=== PATIENT | female | born 1970 | race Caucasian/White ===

== ENCOUNTER 2016-07-19 17:11 | Inpatient (IN) | payer OTHER ==
[~2016-07-19] VITALS: Ht 157.5 cm; Wt 97.1 kg
--- NOTE | 2016-07-19 18:00 | NUR ---
PT REPORTS SHE IS LIVING IN [place] BUT [place]" PT REPORTING SHE TOOK THE BUS FROM [place] TO [facility] [place] AND THEN "WALKED UP THE HILL HERE"
--- NOTE | 2016-07-19 18:00 | NUR ---
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 PT REPORTS SHE NORMALLY HAS DIFFICULTY AMBULATING DUE TO DROP FOOT BUT NOTICED SIGNIFICANT WEAKNESS SINCE ABOUT 3:[address] TREVINO AWARE, CT SCAN ORDERED.
--- NOTE | 2016-07-19 18:37 | NUR ---
PT TO ROOM 12, AWAITING PROVIDER EVAL
--- NOTE | 2016-07-19 18:39 | CT SCAN REPORT ---
EXAMINATION: CT HEAD WITHOUT CONTRAST CLINICAL INFORMATION: Left arm/left leg weakness. Assess for CVA. COMPARISON: None. TECHNIQUE: Contiguous axial imaging was performed from the skull base to vertex without intravenous administration of contrast. DLP: 600.71 mGy-cm. FINDINGS: There is no evidence of acute intracranial hemorrhage or territorial infarction. No abnormal mass effect or midline shift is seen. Moise to white matter differentiation is well preserved. No extra-axial fluid collections are identified. The ventricles are normal in size. There is no abnormal attenuation within the brain parenchyma. The osseous structures and soft tissues are normal. The mastoid air cells and visualized portions of the paranasal sinuses are well aerated. IMPRESSION: 1. There are no acute intracranial findings.
[2016-07-19 19:12] LABS: ABSOLUTE BASOPHIL COUNT 0.1 /CUMM (0.0-0.2); ABSOLUTE EOSINOPHIL COUNT 0.3 /CUMM (0.0-0.7); ABSOLUTE GRANULOCYTE CT 7.6 /CUMM (1.4-6.5); ABSOLUTE LYMPH COUNT 3.3 /CUMM (1.2-3.4); ABSOLUTE MONOCYTE COUNT 0.8 /CUMM (0.10-0.60); BASOPHIL % 0.5 % (0.0-2.0); EOSINOPHIL % 2.8 % (0-5); GRANULOCYTE % 62.8 % (42.2-75.2); HEMATOCRIT 40.5 % (37-47); MEAN CORPUSCULAR HGB CONC 34.3 G/DL (33.0-37.0); MEAN CORPUSCULAR VOLUME 99.1 FL (81.0-99.0); MEAN PLATELET VOLUME 8.3 FL (7.4-10.4); PLATELET COUNT 261 /CUMM (130-400); RED BLOOD CELL CT 4.09 /CUMM (4.20-5.40); WHITE BLOOD CELL COUNT 12.1 /CUMM (4.8-10.8)
[2016-07-19 19:18] LABS: PT 10.3 SEC (9.4-12.5); PTT 32 SEC (25-37)
--- NOTE | 2016-07-19 19:19 | ED UPPER/LOWER EXTREMITY COMPL ---
History of Present Illness General Chief Complaint: Lower Extremity Problems Stated Complaint: WEAKNESS IN LEFT LEG Source: patient Exam Limitations: no limitations Vital Signs & Intake/Output Vital Signs & Intake/Output Vital Signs Date Time Temp Pulse Resp B/P Pulse O2 O2 Flow FiO2 Ox Delivery Rate 07/19 2217 98.7 82 20 106/72 96 Room Air 07/19 2100 98.4 86 18 109/63 99 Room Air 07/19 1840 Room Air 07/19 1759 97.2 91 18 128/89 100 Room Air ED Intake and Output 07/20 0000 07/19 1200 Intake Total 70 Output Total Balance 70 Intake, IV 10 Intake, Oral 60 Patient 200 lb Weight Allergies Coded Allergies: cephalexin (From KEFLEX) (Severe, ANAPHYLAXIS 07/19/16) ciprofloxacin (Severe, ANAPHYLAXIS 07/19/16) egg (Severe, ANAPHYLAXIS 07/19/16) Penicillins (ANAPHYLAXIS 07/19/16) Reconcile Medications Albuterol Sulfate (Proair Hfa) 90 MCG HFA.AER.AD 2 PUF INH PRN ASTHMA ( Reported) Aspirin (Lo-Dose Aspirin EC) 81 MG TABLET.DR 1 TAB PO DAILY HEART/BLOOD ( Reported) Cyclosporine (Restasis) 0.05 % DROPERETTE 1 GTT OPH BID BOTH EYES (Reported) Divalproex Sodium 250 MG TABLET.DR 750 MG PO BID SEIZURES (Reported) Fluticasone/Salmeterol (Advair 250-50 Diskus) 250 MCG-50 MCG/DOSE BLST.W.DEV 1 PUF INH BID ASTHMA (Reported) Levothyroxine Sodium 50 MCG TABLET 1 TAB PO DAILY AC THYROID (Reported) Meclizine HCl 12.5 MG TABLET 1 TAB PO PRN VERTIGO (Reported) Montelukast Sodium 10 MG TABLET 1 TAB PO DAILY SUPPLEMENT (Reported) Prazosin HCl 1 MG CAPSULE 1 CAP PO QPM PTSD (Reported) Quetiapine Fumarate 25 MG TABLET 1 TAB PO QPM SLEEP (Reported) Tiotropium [place] (Spiriva) 18 MCG CAP.W.DEV 1 CAP INH DAILY ASTHMA ( Reported) Topiramate 25 MG TABLET 1 TAB PO BID SEIZURES (Reported) Triage Note: PT TO ED FOR LEFT LEG WEAKNESS, SLURRED SPEECH AND 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 PT REPORTS SHE NORMALLY HAS DIFFICULTY AMBULATING DUE TO DROP FOOT BUT NOTICED SIGNIFICANT WEAKNESS SINCE ABOUT 3:[address] BELINDA AWARE, CT SCAN ORDERED. Triage Nurses Notes Reviewed? yes Onset: Abrupt Duration: hour(s): Timing: single episode today Severity: severe Pain/Injury Location: Left: Arm, Leg. Method of Injury: unknown No Modifying Factors: none Associated Symptoms: left arm and leg weakness. : No Patient currently breastfeeds: No HPI: 46 yo woman in prior good health presents with left hand and arm weakness. She notes that her symptoms began, "sometime this afternoon." She had been in [place] when the symptoms began. She was taking the bus back home and asked the busboy to drop her off near a hosptial. She then dragged her left foot, using her walker, up the hill. "I almost couldn't do it." She notes slight difficulty speaking. "I am speaking more slowly." She notes not headache or vision changes. She is otherwise well. Past History Travel History Traveled to [place] past 21 day No Medical History Any Pertinent Medical History? see below for history Neurological: SEIZURES EENT: NONE Respiratory: asthma Musculoskeletal: SPINAL STENOSIS FOOT DROP Surgical History Surgical History: non-contributory Psychosocial History What is your primary language Bolivian Tobacco Use: Current Daily Use Daily Tobacco Use Amount/Type: => 5 Cigarettes daily ETOH Use: denies use Illicit Drug Use: denies illicit drug use Family History Hx Contributory? No Review of Systems Review of Systems Constitutional: Reports: no symptoms. EENTM: Reports: no symptoms. Respiratory: Reports: no symptoms. Cardiovascular: Reports: no symptoms. Gastrointestinal/Abdominal: Reports: no symptoms. Genitourinary: Reports: no symptoms. Musculoskeletal: Reports: no symptoms. Skin: Reports: no symptoms. Neurological/Psychological: Reports: no symptoms. Hematologic/Endocrine: Reports: no symptoms. Immunological: Reports: no symptoms. All Other Systems: Reviewed and Negative Physical Exam Physical Exam General Appearance: well developed/nourished, mild distress Head: atraumatic Eyes: Bilateral: PERRL, EOMI. Ears, Nose, Throat: normal pharynx, normal ENT inspection, hearing grossly normal Neck: normal inspection, supple Cardiovascular/Respiratory: regular rate/rhythm Gastrointestinal: soft, nontender, non distended Back: normal inspection Skin: intact, normal color, warm/dry Lymphatic: no anterior cervical jacquie Comments: left arm/ left leg with 1/5 strength. Right arm/leg with 5/5 strength. DTR's on left 0/5, right arm/leg 2/5. Light touch intact. Speech slow. No facial droop. Progress Differential Diagnosis: cva vs tia vs other. Plan of Care: Orders Procedure Date/time Status Nothing by Mouth 07/20 B Active CBC WITHOUT DIFFERENTIAL 07/20 06 Active BASIC ELECTROLYTES PLUS BUN&CR 07/20 06 Active Nothing by Mouth 07/19 B Complete URINE DRUGS OF ABUSE 07/19 222 Active Teach/Educate 07/19 2214 Active Nutritional Intake, Monitor 07/19 2214 Active Isolation 07/19 2214 Active Patient Care Conference 07/19 2214 Active Activity/Ambulation 07/19 2214 Active Pathway - chart 07/19 2201 Active House Staff 07/19 2201 Active Patient Data 07/19 2201 Active URINALYSIS 07/19 2156 Active NIH Stroke Scale 07/19 2129 Active Intake & Output 07/19 2112 Active Patient Data 07/19 2035 Active EKG 07/19 2006 Active Add-on Test (ER Only) 07/19 2003 Active Saline Lock 07/19 193 Active Misc Message 07/19 193 Active ED Holding Orders 07/19 193 Active Admit to inpatient 07/19 1936 Active Vital Signs 07/19 193 Active Code Status 07/19 193 Active THYROID STIMULATING HORMONE 07/19 1847 Complete DEPAKOTE LEVEL 07/19 1847 Complete PARTIAL THROMBOPLASTIN TIME 07/19 1757 Complete PROTHROMBIN TIME 07/19 1757 Complete COMPREHENSIVE METABOLIC PANEL 07/19 1757 Complete CBC WITHOUT DIFFERENTIAL 07/19 175 Complete [id number] DOPPLER 07/19 UNK Active SWALLOW EVALUATION 07/19 UNK Active PT Evaluate & Treat 07/19 UNK Active Occupational Tx Eval & Treat 07/19 UNK Active VTE Mechanical Prophylaxis 07/19 UNK Active Telemetry/Negative Turner 07/19 UNK Active MRI-HEAD W & W/O QUINN 07/19 UNK Active ECHOCARDIOGRAM 07/19 UNK Active Current Medications Sig/Jose Guadalupe Start time Last Medication Dose Stop Time Status Admin Quetiapine Fumarate 25 MG QPM 07/20 2200 AC (Seroquel) Aspirin Buffered 81 MG DAILY 07/20 1000 AC (Ecotrin) Enoxaparin Sodium 40 MG DAILY 07/20 1000 AC (Lovenox) Montelukast Sodium 10 MG DAILY 07/20 1000 AC (Singulair) Levothyroxine Sodium 0.05 MG DAILY AC 07/20 0700 AC (Synthroid) Laboratory Tests 07/19/16 1847: Anion Gap 10, Estimated GFR > 60, BUN/Creatinine Ratio 13.3, Glucose 99, Calcium 9.2, Total Bilirubin 0.4, AST 15, ALT 27, Alkaline Phosphatase 106, Total Protein 7.0, Albumin 3.7, Globulin 3.3, Albumin/Globulin Ratio 1.1, TSH 8.840 H , PT 10.3, INR 0.98, APTT 32, CBC w Diff NO MAN DIFF REQ, RBC 4.09 L, MCV 99.1 H, MCH 34.0 H, RDW 13.0, MPV 8.3, Gran % 62.8, Lymphocytes % 27.3, Monocytes % 6.6, Eosinophils % 2.8, Basophils % 0.5, Absolute Granulocytes 7.6 H, Absolute Lymphocytes 3.3, Absolute Monocytes 0.8 H, Absolute Eosinophils 0.3, Absolute Basophils 0.1, PUBS MCHC 34.3, Valproic Acid 24.3 L Diagnostic Imaging: Viewed by Me: Radiology Read, CT Scan. Discussed w/RAD: Radiology Read, CT Scan. Radiology Impression: head ct... benign. CXR Impression: no acute abnormality, no infiltrates, normal size heart, normal mediastinum Initial ED EKG: normal axis, normal intervals, normal p-waves, normal QRS complex, normal sinus rhythm Departure Departure Disposition: STILL A PATIENT Condition: Stable Clinical Impression Primary Impression: CVA (cerebral vascular accident) Referrals: PATIENT HAS NO PRIMARY CARE DR (PCP/Family) Departure Forms: Customer Survey General Discharge Information Comments pt passed swallow evaluation. Stroke score of 7. Head ct neg... aspirin given. Not a candidate for tpa due to uncertain duration of symptoms, with high likelihood of more than 4.5 hours. Admission Note Spoke With: PRESTON CLARKE MD Documentation of Exam: Documentation of any treatments & extenuating circumstances including Concerns Regarding Discharge (functional status, medication knowledge or non-compliance, living conditions, etc.) that warrant an admission rather than observation: pt with 1/5 strength in left arm and leg consistent with cva. Unknown start time and thus not a candidate for thrombolytics. Pt to be admitted for further evaluation and placement. Aspirin given. Pt passed swallow evaluation.
--- NOTE | 2016-07-19 19:28 | NUR ---
DR BENOIT AT BEDSIDE TO KITTY PT. PT WITH SLOW SPEACH, NO FACIAL DROOP. PT STATES SHE WAS ON THE BUS WHEN SHE NOTICED THAT HER LEFT ARM "WAS NOT WORKING SO WELL" IS UNSURE OF WHAT TIME IT STARTED. WALKED UP [place]ILL FROM [employer] DRIVE AREA TO ED WITH HER WALKER. 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 HAS HISTORY OF FOOT DROP ON LEFT SIDE
--- NOTE | 2016-07-19 19:41 | NUR ---
PORT CXR BEING DONE
--- NOTE | 2016-07-19 19:45 | NUR ---
MEDICATED WITH 325 MG ASA PO ORDERED. NO DIFFICULTY DRINKING WATER OR SWALLOWING PILL
--- NOTE | 2016-07-19 20:00 | RADIOLOGY REPORT ---
EXAMINATION: XR PORTABLE CHEST CLINICAL INFORMATION: CVA. COMPARISON: None. TECHNIQUE: Portable view of the chest was obtained. 7:39 PM FINDINGS: No significant abnormality is noted involving the heart, lungs, mediastinum, bony thorax or soft tissues. IMPRESSION: Normal chest.
[2016-07-19] MEDS ORDERED: PRAZOSIN HCL1 M1 PO (20:10)
[2016-07-19] MEDS ORDERED: MECLIZINE HCL12.5 M1 PO (20:11)
[2016-07-19] MEDS ORDERED: DIVALPROEX SOD250 M2 PO (20:11)
[2016-07-19] MEDS ORDERED: LO-DOSE ASPIRIN81 MG PO (20:12)
[2016-07-19] MEDS ORDERED: LEVOTHYROXINE50 MCG PO (20:12)
[2016-07-19] MEDS ORDERED: PROAIR HFA8.5 GM INH (20:13)
[2016-07-19] MEDS ORDERED: TOPIRAMATE25 M2 PO (20:14)
[2016-07-19] MEDS ORDERED: RESTASIS1 EACH OPH (20:15)
[2016-07-19] MEDS ORDERED: QUETIAPINE FUMA25 M1 PO (20:15)
[2016-07-19] MEDS ORDERED: ADVAIR 250-501 EACH INH (20:19)
[2016-07-19] MEDS ORDERED: SPIRIVA18 MCG INH (20:19)
[2016-07-19] MEDS ORDERED: MONTELUKAST SOD10 M1 PO (20:20)
--- NOTE | 2016-07-19 20:29 | NUR ---
MULTIPLE ATEMPTS BY MULTIPLE STAFF UNSUCCESSFUL FOR IV ACCESS
--- NOTE | 2016-07-19 20:49 | History & Physical ---
NIRAV KHALIL,[facility] [place] 07/19/162048: General Information and HPI MD Statement: I have seen and personally examined EDDIE BANERJEE and documented this H&P. The patient is a 46 year old F who presented with a patient stated chief complaint of left arm and leg weakness. Source of Information: patient Exam Limitations: no limitations History of Present Illness: Patient is a 46 y/o F with PMHx of hypothyroidism, asthma, seizure disorder, urinary incontinence bilateral foot drop of unknown etiology, PTSD, insomnia and CVA in May 2016 who presents with acute onset left arm and leg weakness which started around 3:30 PM on the day of current presentation. Patient was taking the bus from [place] where she lives to [place] when she noted that her left arm felt weak and she had difficulty grabbing her belongings which had fallen on the floor. She asked the business specialist if there was a nearby hospital and was told to get off at [place]. She had to drag her feet on her way to the hospital but it is unclear whether she had leg weakness as she has foot drop at baseline. She denies loss of consciousness. She endorses headache, blurry vision and "white spots" in front of her eyes. She denies chest pain or recent infections. Patient had a stroke in May 2016 while visiting friends in [place] and was subsequently hospitalized for 6 days. She was supposed to be discharged to a rehab facility but the plan fell through due to her lack of insurance and she ended up coming back to [place]. She denies residual deficit after the stroke. Of note, patient is homeless and lives in a [place] [facility]. Her PCP prescribes her medications but she is not consistent with follow-up. She endorses longstanding urinary incontinence and wears diapers. She has seen a urologist in [place] in the past and work-up has been nonrevealing. Patient no longer sees the urologist as the botox injections which she has prescribed has made the problem worse. Allergies/Medications Allergies: Coded Allergies: cephalexin (From KEFLEX) (Severe, ANAPHYLAXIS 07/19/16) ciprofloxacin (Severe, ANAPHYLAXIS 07/19/16) egg (Severe, ANAPHYLAXIS 07/19/16) Penicillins (ANAPHYLAXIS 07/19/16) Home Med list Albuterol Sulfate (Proair Hfa) 90 MCG HFA.AER.AD 2 PUF INH PRN ASTHMA ( Reported) Aspirin (Lo-Dose Aspirin EC) 81 MG TABLET. 1 TAB PO DAILY HEART/BLOOD ( Reported) Cyclosporine (Restasis) 0.05 % DROPERETTE 1 GTT OPH BID BOTH EYES (Reported) Divalproex Sodium 250 MG TABLET.DR 750 MG PO BID SEIZURES (Reported) Fluticasone/Salmeterol (Advair 250-50 Diskus) 250 MCG-50 MCG/DOSE BLST.W.DEV 1 PUF INH BID ASTHMA (Reported) Levothyroxine Sodium 50 MCG TABLET 1 TAB PO DAILY AC THYROID (Reported) Meclizine HCl 12.5 MG TABLET 1 TAB PO PRN VERTIGO (Reported) Montelukast Sodium 10 MG TABLET 1 TAB PO DAILY SUPPLEMENT (Reported) Prazosin HCl 1 MG CAPSULE 1 CAP PO QPM PTSD (Reported) Quetiapine Fumarate 25 MG TABLET 1 TAB PO QPM SLEEP (Reported) Tiotropium Hominy (Spiriva) 18 MCG CAP.W.DEV 1 CAP INH DAILY ASTHMA ( Reported) Topiramate 25 MG TABLET 1 TAB PO BID SEIZURES (Reported) Past History Travel History Traveled to [place] past 21 day No Medical History Neurological: seizure Respiratory: asthma Musculoskeletal: spinal stenosis, foot drop Psychiatric: insomnia, 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 Other ([facility]) Primary Language: Kosovan Smoking Status: Current Everyday Smoker (1/2 PPD) ETOH Use: denies use Illicit Drug Use: denies illicit drug use Review of Systems Review of Systems Constitutional: Reports: no symptoms. EENTM: Reports: blurred vision, visual changes. Cardiovascular: Denies: chest pain. Respiratory: Denies: short of breath. GI: Reports: no symptoms. Genitourinary: Reports: see HPI. Musculoskeletal: Reports: no symptoms. Skin: Reports: no symptoms. Neurological/Psychological: Reports: headache, unable to move lower ext, unable to move upper ext, weakness. Denies: pre-existing deficit. Hematologic/Endocrine: Reports: no symptoms. Immunologic/Allergic: Reports: no symptoms. All Other Systems: Reviewed and Negative Exam & Diagnostic Data Last 24 Hrs of Vital Signs/I&O Vital Signs Date Time Temp Pulse Resp B/P Pulse O2 O2 Flow FiO2 Ox Delivery Rate 07/19 2216 98.7 82 20 106/72 96 Room Air 07/19 2100 98.4 86 18 109/63 99 Room Air 07/19 1840 Room Air 07/19 1759 97.2 91 18 128/89 100 Room Air Intake & Output 07/20 0800 07/20 0000 07/19 1600 Intake Total 70 Output Total Balance 70 Intake, IV 10 Intake, Oral 60 Patient 90.718 kg Weight Physical Exam General Appearance Alert, Oriented X3, No Acute Distress Skin No Significant Lesion HEENT PERRLA, Mucous Membr. moist/pink Cardiovascular Regular Rate, Normal S1, Normal S2 Lungs Clear to Auscultation Abdomen Soft, No Tenderness, Positive Bowel Sounds Neurological Normal Speech, Sensation Intact, Cranial Nerves 3-12 NL, Strength at 3/5 in Left Upper and Lower Extremity, Strength at 5/5 in Right Upper and Lower Extremity, Unable to Elicit Patellar Reflexes Bilaterally Extremities No Clubbing, No Cyanosis, No Edema Last 24 Hrs of Labs/John: Laboratory Tests 07/19/167: Anion Gap 10, Estimated GFR > 60, BUN/Creatinine Ratio 13.3, Glucose 99, Calcium 9.2, Total Bilirubin 0.4, AST 15, ALT 27, Alkaline Phosphatase 106, Total Protein 7.0, Albumin 3.7, Globulin 3.3, Albumin/Globulin Ratio 1.1, TSH 8.840 H , PT 10.3, INR 0.98, APTT 32, CBC w Diff NO MAN DIFF REQ, RBC 4.09 L, MCV 99.1 H, MCH 34.0 H, RDW 13.0, MPV 8.3, Gran % 62.8, Lymphocytes % 27.3, Monocytes % 6.6, Eosinophils % 2.8, Basophils % 0.5, Absolute Granulocytes 7.6 H, Absolute Lymphocytes 3.3, Absolute Monocytes 0.8 H, Absolute Eosinophils 0.3, Absolute Basophils 0.1, PUBS MCHC 34.3, Valproic Acid 24.3 L Diagnostic Data EKG Results Normal sinus rhythm HR 83 QTc 423 CXR Results Normal chest. Other Results There are no acute intracranial findings. Assessment/Plan Assessment: 46 y/o F with PMHx of CVA in May 2016, seizure disorder and foot drop of unknown etiology who presents with acute onset of leg arm and leg weakness. #Left arm/leg weakness: Left arm/leg weakness would be consistent with R-sided stroke however CT Head with no evidence of acute infarct or hemorrhage. Differential includes TIA as well. Suspicion for malingering is high, given inconsistency of her symptoms (LUE with full strength when assessed while patient was falling asleep and varying levels of strength measured by different examiners) and in the setting of patient's unstable living situation. History of recent stroke in May 2016 with no residual deficits. * Admit to telemetry floor for continuous cardiac monitoring. * Neurology consult in the AM. Appreciate their recs. * Neurochecks Q6H. * MRI Head W & W/O QUINN ordered to evaluate for acute infarct. * ECHO ordered to assess for embolic source. * Carotid doppler US ordered to evaluate for carotid artery stenosis. * Urine toxicology ordered. * Continue prior to admission daily low dose aspirin. * Start atorvastatin 40 mg PO QD. * NPO pending formal swallow eval in the AM. * PT/OT consult. * Check lipid panel and TSH. * Allow for permissive HTN given suspicion of stroke. Keep SBP >150. #Seizure disorder: On Depakote 750 mg PO BID and topiramate 25 mg PO BID. Valproic acid level low at 24.3 (reference range: 50-120). * Continue home medications. * Seizure precautions. #Hypothyroidism: TSH elevated at 8.840 on admission. * Continue prior to admission levothyroxine 0.05 mg PO QD. #Asthma/COPD: Takes Advair, Spiriva and montelukast. No signs of acute exacerbation. * Continue prior to admission montelukast 10 mg PO QD. * Albuterol PRN. #PTSD/insomnia: Takes prazosin 1 mg PO QHS and Seroquel 25 mg PO QHS. * Hold prazosin in light of permissive BP goal. * Continue prior to admission Seroquel. Diet: NPO Pain: Tylenol 650 mg PO Q6H PRN for mild pain (scale 1-3) DVT PPx: Lovenox and ALPs CODE: FULL As Ranked By This Provider Problem List: 1. Left arm weakness 2. Left leg weakness 3. Seizure disorder 4. Asthma 5. Hypothyroidism 6. PTSD (post-traumatic stress disorder) 7. Foot drop 8. Urinary incontinence 9. Insomnia 10. History of CVA (cerebrovascular accident) without residual deficits Core Measures/Miscellaneous Acute Coronary Syndrome ACS Diagnosis: No Cerebrovascular Accident CVA/TIA Diagnosis: Yes NIH Stroke Scale: Total 4 Date Last Known Well: 07/19/16 Time Last Known Well: 1530 (Before sx started at 3:30 PM) Neurological S/S of CVA: Left Hemiparesis, Muscle Weakness, Weakness of Limb Symptom Start Date: 07/19/16 Symptom Start Time: 1529 Reason tPA not ordered Medical Contraindication (Past the Window) Bedside Swallow Eval Done: Yes Result of Evaluation: Pass Antithrombotic: Yes AFIB: No Aflutter: No Anticoagulant: No No Anticoag d/t: Medical Contraindication (No Concern for Embolic Disease) LDL Assessed Within 24 Hours: Yes Currently on Statin: Yes Rehab Needs Assessed: Medical Eval for Rehab (PT/OT Eval Ordered) PT Consult Ordered: Yes Congestive Heart Failure CHF Diagnosis: No Venous Thromboembolism VTE Risk Factors: Acute medical illness, Age > 40, Immobility, paresis, Obesity, Smoking VTE Prophylaxis Ordered Inpt: Mech & Pharm No Mech VTE prophylaxis d/t: No contraindications No VTE Pharm Prophylaxis d/t: No contraindications VTE Diagnosis: No VTE Type: NONE VTE Confirmed by (Test): NONE Severe Sepsis Severe Sepsis Present: No Septic Shock Septic Shock Present: No Miscellaneous Documentation Attending Case Discussed With: PRESTON CLARKE MD Primary Care Physician: PATIENT HAS NO PRIMARY CARE DR Patient sees these Specialists N/A Level of Patient Care: Telemetry ANGELA LEAVITT 07/19/16 2223: Resident Review Statement Resident Statement: examined this patient, discussed with international trade analyst, agreed with international trade analyst Other Findings: Patient is a 46-year-old woman with past medical history significant for asthma, seizure disorder, urinary incontinence and foot drop of unknown etiology presented to the ED with a chief complaints of acute left-sided upper and lower extremity started in the evening at around 4 PM. She reported that her symptoms started while she was on a bus. She noticed acute left-sided upper and lower extremity weakness could not able to grab her stuff. She informed the dolly driver and was dropped to the [facility] for the further assessment. Accordingly the patient she had a stroke in May 2016 when she was visiting a friend/family in [place], hospitalized for 6 days and afterwards she was supposed to be discharged to rehabilitation but due to lack of insurance she couldn't go to rehabilitation and came back to [place]. She did not have any residual weakness after the stroke. She is homeless and lives [place] [facility], does not regularly follow up with the primary care physician. She has urinary incontinence for a long time use diapers. Vitals on admission temperature 97.2, pulse 91, blood pressure 128/89 General Appearance: Alert, No Acute Distress, Skin: Grossly normal HEENT: PEERLA Neck: Supple, No JVD Cardiovascular: Regular Rate, Normal S1, Normal S2, No Murmurs Lungs: Lungs clear to examination bilaterally Abdomen: Normal Bowel Sounds, Soft, positive suprapubic tenderness Neurological: Decreased Left low extremity 2/5, decreased in left lower extremity strength 2/5 Strength at 5/5 in the right upper and lower extremities, decreased reflexes in lower extremities with intact sensations. Extremities: No Clubbing, No Cyanosis, No Edema Vascular: Normal Pulses. Pertinent labs on admission leukocytosis without any bandemia normal BP normal PTT and INR. CT head: There are no acute intracranial findings. Assessments and plan: 1. Acute upper and lower extremity weakness possible TIA versus stroke versus Possible malingering : * We will admit the patient to telemetry floor. * Patient passed bedside swallow evaluation, will keep her nothing by mouth overnight to get formal swallow evaluation in the morning. * Blood pressure continues to remain borderline, hold off any antihypertensive for now, per med permissive hypertension to keep blood pressure more than 150. * Consider antihypertensives if blood pressure remains elevated above 220. * Patient already received high-dose aspirin 325 in the ER we'll continue with aspirin 85 mg daily and Lipitor 40 mg. * Inform neurology in the morning * PT/OT consult in the morning. 2 history of seizures * Continue home dose of Depakote and Seroquel. 3. DVT prophylaxis with subcutaneous Lovenox 4. Mild to moderate pain controlled with Tylenol. 5. Full code. VINCEJEREMIAHYue 07/20/16 0523: Attending MD Review Statement Attending Statement Attending MD Statement: examined this patient, discuss w/resident/PA/MOBILE MANAGER, agreed w/resident/PA/MOBILE MANAGER, reviewed EMR data (avail), reviewed images, amended to note Attending Assessment/Plan: Chief complaint: Left arm weakness, left leg weakness. PMH: Hypothyroidism, seizure, asthma, bilateral foot drop, urinary incontinence, PTSD, insomnia, CVA in May 2016. Patient lives in a [facility] [place] [facility], Patient was taking a bus from [place] to [place], when she noticed things are falling off from left hand, also noticed worsening left lower extremity weakness and left arm weakness, so she asked business specialist to drop to nearest hospital, she came to ER walking. Otherwise 14 point ROS negative. Vitals: Afebrile, HR, RR, blood pressure in normal range, saturating well on room air. On examination: A O 3, slow speech, cranial nerves intact, Patient has subjective 3/5 strength left upper extremity and left lower extremity, CVS: S1-S2, RRR. RS: Clear air entry bilaterally. Abdomen: Soft, NT, ND, bowel sounds present no obvious skin lesions or rashes. Labs: WBC 12.1 CBC, BMP, LFT in normal range. CT head: No acute intracranial finding. CXR: No acute changes. A and P #1 TIA versus stroke: Patient had left-sided subjective weakness, CT head did not show any changes. Obtain MRI brain with and without contrast, telemetry monitoring, carotid Doppler, 2-D echo, lipid profile, TSH, urine toxicology, neurochecks every 6 hours, OT PT evaluation in a.m. Neurologic consult in a.m. Continue 325 mg of aspirin by mouth and 40 mg, atorvastatin by mouth, swallow evaluation in a.m. #2 hypothyroidism: Continue home doses of Synthroid. #3 history of seizures: Continue Depakote and topiramate. Seizure precaution. #4 PTSD/insomnia/depression continue home medications. #5 history of asthma/COPD: Continue when necessary nebulization with albuterol. #6 DVT prophylaxis with Lovenox. Adequate pain control.
--- NOTE | 2016-07-19 20:59 | NUR ---
BED ASSIGNEMNT [id number]
--- NOTE | 2016-07-19 21:10 | NUR ---
IV ACCESS ESTABLISHED KADEN 22G BY ZAFAR Lester
--- NOTE | 2016-07-19 21:13 | NUR ---
HOUSE STAFF AT BEDSIDE TO EVAL PT
--- NOTE | 2016-07-19 21:48 | NUR ---
REPORT GIVEN TO ZAFAR MCLAUGHLIN, TRANSPORT CALLED
[2016-07-19 22:17] VITALS: BP 106/72
--- NOTE | 2016-07-20 05:24 | Admission Certification ---
Admission Certification Certification Statement - As attending physician, I certify that at the time of - admission, based on clinical presentation, severity of - symptoms, need for further diagnostic testing and - therapeutic interventions, and risk of adverse outcomes - without in-hospital treatment, in my clinical assessment, - this patient requires an acute hospital stay for a minimum - of two nights or longer. I have also considered psychsocial - factors such as support system, advanced age, financial - issues, cognitive issues, and failed out-patient treatments, - past re-admission history, safety of patient, and lack of - compliance as applicable. Specific rationale supporting this admission is: TIA versus stroke
--- NOTE | 2016-07-20 07:26 | PN- Housestaff ---
ANGELA LEAVITT 07/20/16 0725: Subjective Follow-up For: Acute upper and lower extremity weakness possible TIA versus stroke versus Possible malingering Subjective: Patient is seen and examined today seems slightly better still reports left upper and lower extremity weakness. Currently nothing by mouth for formal swallowing evaluation in the morning patient will be evaluated by neurology Review of Systems Constitutional: Denies: chills, diaphoresis, fever. EENTM: Denies: blurred vision, double vision, eye pain, eye drainage. Cardiovascular: Denies: chest pain. Respiratory: Denies: cough, orthopnea, short of breath. Genitourinary: Denies: discharge, dysuria, frequency. Objective Last 24 Hrs of Vital Signs/I&O Vital Signs Date Time Temp Pulse Resp B/P Pulse O2 O2 Flow FiO2 Ox Delivery Rate 07/19 2217 98.7 82 20 106/72 96 Room Air 07/19 2100 98.4 86 18 109/63 99 Room Air 07/19 1840 Room Air 07/19 1759 97.2 91 18 128/89 100 Room Air Intake & Output 07/20 0800 07/20 0000 07/19 1600 Intake Total 800 70 Output Total Balance 800 70 Intake, IV 600 10 Intake, Oral 200 60 Patient 200 lb Weight Physical Exam General Appearance: Alert, Oriented X3 Skin: No Rashes, No Breakdown HEENT: Atraumatic, PERRLA Cardiovascular: Regular Rate, Normal S1, Normal S2 Abdomen: Normal Bowel Sounds, Soft Assessment/Plan Assessment: Patient is a 46-year-old woman with past medical history significant for asthma, seizure disorder, urinary incontinence and foot drop of unknown etiology presented to the ED with a chief complaints of acute left-sided upper and lower extremity started in the evening at around 4 PM. She reported that her symptoms started while she was on a bus. She noticed acute left-sided upper and lower extremity weakness could not able to grab her stuff. She informed the car driver and was dropped to the [facility] for the further assessment. Assessments and plan: 1. Acute upper and lower extremity weakness possible TIA versus stroke versus Possible malingering : * We will admit the patient to telemetry floor. * Patient passed bedside swallow evaluation, will keep her nothing by mouth overnight to get formal swallow evaluation in the morning. * Blood pressure continues to remain borderline, hold off any antihypertensive for now, per med permissive hypertension to keep blood pressure more than 150. * Consider antihypertensives if blood pressure remains elevated above 220. * Patient already received high-dose aspirin 325 in the ER we'll continue with aspirin 85 mg daily and Lipitor 40 mg. * Inform neurology in the morning * PT/OT consult in the morning. 2 history of seizures * Continue home dose of Depakote and Seroquel. 3. DVT prophylaxis with subcutaneous Lovenox 4. Mild to moderate pain controlled with Tylenol. 5. Full code. Problem List: 1. Left arm weakness 2. Left leg weakness Pain Ratin Pain Location: When necessary Tylenol Pain Goal: Remain pain free Pain Plan: When necessary Tylenol Tomorrow's Labs & Rationales: No need of labs NAOMI DESHPANDE MD 07/20/16 1205: Attending MD Review Statement Attending Statement Attending MD Statement: examined this patient, discuss w/resident/PA/LABORATORY AIDE, agreed w/resident/PA/LABORATORY AIDE, reviewed EMR data (avail), reviewed images Attending Assessment/Plan: 46-year-old female with past medical history significant for asthma, seizure disorder, urinary incontinence, PTSD, hypothyroidism, previous history of CVA in May 2016, and for drop of unknown etiology is being admitted on the floor with a 1 day history of acute left-sided weakness of the body. She was seen and examined on the bedside this morning and continued to have weakness in both the upper and lower left extremity. CT head did not show any acute infarct or hemorrhage. MRI has been ordered and we would follow the results. Neurology consult is awaited. Please follow-up on neurology recommendations regarding increase in valproic acid given her subtherapeutic valproic acid levels. Swallow eval is also pending. For now we'll continue to monitor and will keep her on aspirin and statins.
[2016-07-20 08:47] VITALS: BP 103/59
[2016-07-20 11:54] LABS: ABSOLUTE BASOPHIL COUNT 0 /CUMM (0.0-0.2); ABSOLUTE EOSINOPHIL COUNT 0.3 /CUMM (0.0-0.7); ABSOLUTE GRANULOCYTE CT 4.4 /CUMM (1.4-6.5); ABSOLUTE LYMPH COUNT 3.3 /CUMM (1.2-3.4); ABSOLUTE MONOCYTE COUNT 0.6 /CUMM (0.10-0.60); BASOPHIL % 0.4 % (0.0-2.0); EOSINOPHIL % 3.9 % (0-5); GRANULOCYTE % 50.9 % (42.2-75.2); HEMATOCRIT 39.1 % (37-47); MEAN CORPUSCULAR HGB 34.3 PG (27.0-31.0); MEAN CORPUSCULAR HGB CONC 34.5 G/DL (33.0-37.0); MEAN CORPUSCULAR VOLUME 99.6 FL (81.0-99.0); MEAN PLATELET VOLUME 8.9 FL (7.4-10.4); PLATELET COUNT 237 /CUMM (130-400); RBC DISTRIBUTION WIDTH 12.9 % (11.5-14.5); RED BLOOD CELL CT 3.93 /CUMM (4.20-5.40); WHITE BLOOD CELL COUNT 8.7 /CUMM (4.8-10.8)
--- NOTE | 2016-07-20 12:17 | NUR ---
Physical therapy: Pt VARUN for MRI. Will follow up with patient tomorrow for PT eval as appropriate. Thank you.
--- NOTE | 2016-07-20 12:26 | ULTRASOUND REPORT ---
EXAMINATION: DUPLEX BILATERAL CAROTID ULTRASOUND CLINICAL INFORMATION: Stroke with left-sided weakness. COMPARISON: None. TECHNIQUE: Real-time ultrasound and Doppler techniques (integrating B-mode 2D vascular images, Doppler spectral analysis and color flow Doppler imaging) were utilized to interrogate the extracranial carotid and vertebral arteries bilaterally. FINDINGS: Right side: 1. There is no significant plaque in the ECA/ICA region. 2. The common carotid artery velocity is 78 cm/s. 3. The proximal internal carotid artery velocities are 94 cm/s systolic and 37 cm/s diastolic. 4. The external carotid artery velocity is 121 cm/s. Left side: 1. There is no significant plaque in the ECA/ICA region. 2. The common carotid artery velocity is 102 cm/s. 3. The proximal internal carotid artery velocities are 94 cm/s systolic and 28 cm/s diastolic. 4. The external carotid artery velocity is 99 cm/s. ADDITIONAL FINDINGS: 1. The vertebral arteries show antegrade flow. 2. The brachial artery pressures are symmetric. IMPRESSION: 1. RIGHT: No significant stenosis of the proximal right internal carotid artery corresponding to a 0-49% stenosis by velocity criteria. 2. LEFT: No significant stenosis of the proximal left internal carotid artery corresponding to a 0-49% stenosis by velocity criteria. 3. Antegrade flow is seen via the bilateral vertebral arteries.
--- NOTE | 2016-07-20 14:22 | Cons- Neurology ---
General Information and HPI Consulting Request Date of Consult: 07/20/16 Requested By: PRESTON CLARKE MD Reason for Consult: left sided weakness History of Present Illness: The patient is a 46 y/o F with PMHx of hypothyroidism, asthma, seizure disorder, urinary incontinence bilateral foot drop of unknown etiology, PTSD, insomnia and CVA in May 2016 who presents with acute onset left arm and leg weakness which started around 3:30 PM on the day of current presentation. Patient was taking the bus from [place] where she lives to [place] when she noted that her left arm felt weak and she had difficulty grabbing her belongings which had fallen on the floor. She asked the busher helper if there was a nearby hospital and was told to get off at [place]. She had to drag her feet on her way to the hospital but it is unclear whether she had leg weakness as she has foot drop at baseline. Patient had a stroke in May 2016 while visiting friends in [place] and was subsequently hospitalized for 6 days. She was supposed to be discharged to a rehab facility but the plan fell through due to her lack of insurance and she ended up coming back to [place]. She denies residual deficit after the stroke. Of note, patient is homeless and lives in a usp. Her PCP prescribes her medications but she is not consistent with follow-up. Allergies/Medications Allergies: Coded Allergies: cephalexin (From KEFLEX) (Severe, ANAPHYLAXIS 07/19/16) ciprofloxacin (Severe, ANAPHYLAXIS 07/19/16) egg (Severe, ANAPHYLAXIS 07/19/16) Penicillins (ANAPHYLAXIS 07/19/16) Home Med List: Albuterol Sulfate (Proair Hfa) 90 MCG HFA.AER.AD 2 PUF INH PRN ASTHMA ( Reported) Aspirin (Lo-Dose Aspirin EC) 81 MG TABLET. 1 TAB PO DAILY HEART/BLOOD ( Reported) Cyclosporine (Restasis) 0.05 % DROPERETTE 1 GTT OPH BID BOTH EYES (Reported) Divalproex Sodium 250 MG TABLET.DR 750 MG PO BID SEIZURES (Reported) Fluticasone/Salmeterol (Advair 250-50 Diskus) 250 MCG-50 MCG/DOSE BLST.W.DEV 1 PUF INH BID ASTHMA (Reported) Levothyroxine Sodium 50 MCG TABLET 1 TAB PO DAILY AC THYROID (Reported) Meclizine HCl 12.5 MG TABLET 1 TAB PO PRN VERTIGO (Reported) Montelukast Sodium 10 MG TABLET 1 TAB PO DAILY SUPPLEMENT (Reported) Prazosin HCl 1 MG CAPSULE 1 CAP PO QPM PTSD (Reported) Quetiapine Fumarate 25 MG TABLET 1 TAB PO QPM SLEEP (Reported) Tiotropium [place] (Spiriva) 18 MCG CAP.W.DEV 1 CAP INH DAILY ASTHMA ( Reported) Topiramate 25 MG TABLET 1 TAB PO BID SEIZURES (Reported) Current Medications: Current Medications Sig/Jose Guadalupe Start time Last Medication Dose Route Stop Time Status Admin Acetaminophen 650 MG Q6P PRN 07/19 2200 AC 07/19 PO 2307 Aspirin 325 MG ONCE ONE 07/19 1944 DC 07/19 PO 07/19 Aspirin 0 .STK-MED ONE 07/19 1939 DC PO Aspirin Buffered 81 MG DAILY 07/20 1000 AC 07/20 PO 1101 Atorvastatin Calcium 40 MG 1700 07/19 2200 AC 07/20 PO 0030 Divalproex Sodium 750 MG BID 07/19 2230 AC 07/20 PO 1101 Enoxaparin Sodium 40 MG DAILY 07/20 1000 AC SC Levothyroxine Sodium 0.05 MG DAILY AC 07/20 0700 AC 07/20 PO 0725 Lorazepam 1 MG ONCE ONE 07/20 1100 DC 07/20 IV 07/20 1101 1102 Montelukast Sodium 10 MG DAILY 07/20 1000 AC 07/20 PO 1101 Quetiapine Fumarate 25 MG QPM 07/20 2200 AC PO Sodium Chloride 1,000 ML Q13H 07/19 2230 AC 07/19 IV 2307 Review of Systems Review of Systems: 10 point ROS was unremarkable except as noted as above Past History Travel History Traveled to [place] past 21 day No Medical History Blood Transfusion Hx: No Neurological: seizure Cardiovascular: NONE Respiratory: asthma Gastrointestinal: NONE Hepatic: NONE Renal: NONE Musculoskeletal: spinal stenosis, foot drop Psychiatric: insomnia, PTSD Endocrine: hyperthyroidism Blood Disorders: NONE Cancer(s): NONE 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 Other (Homeless Snf) Services at Home: None Primary Language: Mongolian Smoking Status: Current Everyday Smoker (1/2 PPD) ETOH Use: denies use Illicit Drug Use: denies illicit drug use Exam & Diagnostic Data Vital Signs and I&O Vital Signs Date Time Temp Pulse Resp B/P Pulse O2 O2 Flow FiO2 Ox Delivery Rate 07/20 0847 98.2 63 16 103/59 97 Room Air 07/19 2217 98.7 82 20 106/72 96 Room Air 07/19 2100 98.4 86 18 109/63 99 Room Air 07/19 1840 Room Air 07/19 1759 97.2 91 18 128/89 100 Room Air Intake & Output 07/20 1600 07/20 0800 07/20 0000 Intake Total 800 70 Output Total Balance 800 70 Intake, IV 600 10 Intake, Oral 200 60 Patient 90.718 kg Weight Physical Exam: Patient not cooperative with exam, would like to be left alone so she can go back to sleeping NAD A&Ox4, able to follow simple and complex commands, no dysarthria Pupils are 3mm britt, no forced gaze deviation, no ptosis, ophthalmoparesis or nystagmus CN 2- 12 intact Motor: normal bulk/tone, no drift, 5/5 t/o Neg christina No clonus Downgoing toes Sensation intact t/o Last 48 Hours of Lab Results: Laboratory Tests 07/20 07/19 1031 2220 Chemistry Sodium (137 - 145 mmol/L) 142 Potassium (3.5 - 5.1 mmol/L) 4.7 Chloride (98 - 107 mmol/L) 110 H Carbon Dioxide (22 - 30 mmol/L) 23 Anion Gap (5 - 16) 10 BUN (7 - 17 mg/dL) 11 Creatinine (0.5 - 1.0 mg/dL) 0.9 Estimated GFR (>60 ml/min) > 60 BUN/Creatinine Ratio (7 - 25 %) 12.2 Triglycerides (<150 mg/dL) 382 H Cholesterol (<200 MG/DL) 190 LDL Cholesterol, Calc (65 - 129 mg/dL) 89 HDL Cholesterol (40 - 60 mg/dL) 25 L Cholesterol/HDL Ratio (0.00 - 4.23 %) 7 H Hematology CBC w Diff NO MAN DIFF REQ WBC (4.8 - 10.8 /CUMM) 8.7 RBC (4.20 - 5.40 /CUMM) 3.93 L Hgb (12.0 - 16.0 G/DL) 13.5 Hct (37 - 47 %) 39.1 MCV (81.0 - 99.0 FL) 99.6 H MCH (27.0 - 31.0 PG) 34.3 H RDW (11.5 - 14.5 %) 12.9 Plt Count (130 - 400 /CUMM) 237 MPV (7.4 - 10.4 FL) 8.9 Gran % (42.2 - 75.2 %) 50.9 Lymphocytes % (20.5 - 51.1 %) 38.0 Monocytes % (1.7 - 9.3 %) 6.8 Eosinophils % (0 - 5 %) 3.9 Basophils % (0.0 - 2.0 %) 0.4 Absolute Granulocytes (1.4 - 6.5 /CUMM) 4.4 Absolute Lymphocytes (1.2 - 3.4 /CUMM) 3.3 Absolute Monocytes (0.10 - 0.60 /CUMM) 0.6 Absolute Eosinophils (0.0 - 0.7 /CUMM) 0.3 Absolute Basophils (0.0 - 0.2 /CUMM) 0 PUBS MCHC (33.0 - 37.0 G/DL) 34.5 Toxicology Methadone Screen Cancelled Barbiturate Screen Cancelled Ur Phencyclidine Scrn Cancelled Amphetamines Screen Cancelled U Benzodiazepines Scrn Cancelled Urine Cocaine Screen Cancelled Urine Cannabis Screen Cancelled 07/19 1847 Chemistry Sodium (137 - 145 mmol/L) 140 Potassium (3.5 - 5.1 mmol/L) 4.4 Chloride (98 - 107 mmol/L) 105 Carbon Dioxide (22 - 30 mmol/L) 24 Anion Gap (5 - 16) 10 BUN (7 - 17 mg/dL) 12 Creatinine (0.5 - 1.0 mg/dL) 0.9 Estimated GFR (>60 ml/min) > 60 BUN/Creatinine Ratio (7 - 25 %) 13.3 Glucose (65 - 99 mg/dL) 99 Calcium (8.4 - 10.2 mg/dL) 9.2 Total Bilirubin (0.2 - 1.3 mg/dL) 0.4 AST (14 - 36 U/L) 15 ALT (9 - 52 U/L) 27 Alkaline Phosphatase (<127 U/L) 106 Total Protein (6.3 - 8.2 g/dL) 7.0 Albumin (3.5 - 5.0 g/dL) 3.7 Globulin (1.9 - 4.2 gm/dL) 3.3 Albumin/Globulin Ratio (1.1 - 2.2 %) 1.1 TSH (0.270 - 4.200 uIU/mL) 8.840 H Coagulation PT (9.4 - 12.5 SEC) 10.3 INR (0.90 - 1.19) 0.98 APTT (25 - 37 SEC) 32 Hematology CBC w Diff NO MAN DIFF REQ WBC (4.8 - 10.8 /CUMM) 12.1 H RBC (4.20 - 5.40 /CUMM) 4.09 L Hgb (12.0 - 16.0 G/DL) 13.9 Hct (37 - 47 %) 40.5 MCV (81.0 - 99.0 FL) 99.1 H MCH (27.0 - 31.0 PG) 34.0 H RDW (11.5 - 14.5 %) 13.0 Plt Count (130 - 400 /CUMM) 261 MPV (7.4 - 10.4 FL) 8.3 Gran % (42.2 - 75.2 %) 62.8 Lymphocytes % (20.5 - 51.1 %) 27.3 Monocytes % (1.7 - 9.3 %) 6.6 Eosinophils % (0 - 5 %) 2.8 Basophils % (0.0 - 2.0 %) 0.5 Absolute Granulocytes (1.4 - 6.5 /CUMM) 7.6 H Absolute Lymphocytes (1.2 - 3.4 /CUMM) 3.3 Absolute Monocytes (0.10 - 0.60 /CUMM) 0.8 H Absolute Eosinophils (0.0 - 0.7 /CUMM) 0.3 Absolute Basophils (0.0 - 0.2 /CUMM) 0.1 PUBS MCHC (33.0 - 37.0 G/DL) 34.3 Toxicology Valproic Acid (50 - 120 ug/mL) 24.3 L Imaging/Other Studies: CT head: There are no acute intracranial findings. CUS: 1. RIGHT: No significant stenosis of the proximal right internal carotid artery corresponding to a 0-49% stenosis by velocity criteria. 2. LEFT: No significant stenosis of the proximal left internal carotid artery corresponding to a 0-49% stenosis by velocity criteria. 3. Antegrade flow is seen via the bilateral vertebral arteries. Assessment/Plan Assessment: The patient is a 46 y/o F with PMHx of hypothyroidism, asthma, seizure disorder, urinary incontinence bilateral foot drop of unknown etiology, PTSD, insomnia and CVA in May 2016 who presents with acute onset left arm and leg weakness. Less likely to be new ischemia, possible recrudensce of old stroke. It is difficult to be sure due to poor history and cooperation. Obtain MRI of brain w/o QUINN to look for ischemia Continue ASA/statin Obtain pt/ot consult If MRI of brain shows ischemia the obtain echo with bubble and fasting lipids, b12, tsh and hba1c Call with questions Recommendations: see above Consult Acknowledgment - Thank you for your consult request.
--- NOTE | 2016-07-20 15:53 | MRI REPORT ---
EXAMINATION: MR BRAIN WITHOUT AND WITH CONTRAST CLINICAL INFORMATION: Stroke. TIA. Left-sided weakness. COMPARISON: None. TECHNIQUE: MRI of the brain was obtained using routine sequences before and after the intravenous administration of 10 mL of Gadavist. FINDINGS: Diffusion-weighted images demonstrate no evidence of acute infarcts. No intracranial hemorrhage or tumors are noted. Minimal number scattered punctate nonenhancing T2 hyperintensities are visualized and are of doubtful clinical significance as similar findings are a frequently encountered asymptomatic finding. No definitive perivenular lesions or lesions of the middle cerebellar peduncles are visualized to suggest demyelinating disease. Susceptibility weighted images reveal no evidence of acute or chronic hemorrhage within the brain parenchyma. Grossly normal flow-related signal intensity is identified in the major intracranial vessels and dural sinuses. The cervical medullary junction cerebellar tonsils are normal in configuration. No suspicious marrow signal abnormalities are identified. The orbits and globes are normal in appearance. No significant mucosal thickening or retained secretions are noted within the visualized paranasal sinuses, mastoid air cells and middle ear cavities. No abnormal enhancement the brain is identified. IMPRESSION: Normal unenhanced and IV contrast enhanced MRI of the brain.
[2016-07-20 19:01] VITALS: BP 110/63
--- NOTE | 2016-07-20 22:36 | NUR ---
2209- Patient has episode of vomiting. She vomited into full trash can so this RN unable to assess if the pills the patient received have been digested. Patient received medications at 2150. Dr. Yonathan Funes notified, one time order of IV Zofran ordered and given, and duplicate order of depakote ordered as well. Will cont to monitor this patient.
[2016-07-21 00:18] VITALS: BP 112/80
[2016-07-21 08:35] VITALS: BP 87/56
[2016-07-21 08:54] VITALS: BP 110/60
--- NOTE | 2016-07-21 11:23 | PN- Att Addend ---
Attending Addendum Attending Brief Note 46-year-old female with past medical history significant for asthma, seizure disorder, urinary incontinence, PTSD, hypothyroidism, previous history of CVA in May 2016, and for drop of unknown etiology is being admitted on the floor with a 1 day history of acute left-sided weakness of the body. She was seen and examined on the bedside this morning and continued to have weakness in both the upper and lower left extremity. CT head did not show any acute infarct or hemorrhage. MRI of the head came back as normal. Neurology is on board and no further specific recommendations. For now we'll continue to monitor and will keep her on aspirin and statins, will get physiotherapy and possible short-term rehabilitation.
[2016-07-21 16:37] VITALS: BP 116/74
[2016-07-21 22:56] VITALS: BP 120/64
--- NOTE | 2016-07-22 07:19 | PN- Housestaff ---
See Addendum Subjective Follow-up For: Acute upper and lower extremity weakness possible TIA versus stroke Tele-Events Since Last Visit: Sinus rhythm heart rate between 65-79, no overnight events. Subjective: Patient seen and examined this morning. She was sitting comfortably in her chair no no acute distress. Continues complain of left upper and lower extremity weakness. She is very concerned about back pain which has been going on for a while but has increased in intensity for the past 2 days. Remains afebrile, other vitals within normal limits. Review of Systems Constitutional: Denies: chills, fever. Cardiovascular: Denies: chest pain, palpitations. Respiratory: Denies: cough, short of breath, sputum production. Gastrointestinal: Denies: abdominal pain, constipation, diarrhea, nausea, vomiting. Genitourinary: Denies: dysuria, frequency. Objective Last 24 Hrs of Vital Signs/I&O Vital Signs Date Time Temp Pulse Resp B/P Pulse O2 O2 Flow FiO2 Ox Delivery Rate 07/22 0801 99.3 73 18 110/60 97 Room Air 07/21 2256 98.2 80 18 120/64 94 Room Air 07/21 1637 98.4 73 18 116/74 95 Room Air Intake & Output 07/22 1600 07/22 0800 07/22 0000 Intake Total 400 Output Total 500 400 Balance -100 -400 Intake, Oral 400 Output, Urine 500 400 Physical Exam General Appearance: Alert, Oriented X3, Cooperative, No Acute Distress Cardiovascular: Regular Rate, Normal S1, Normal S2 Lungs: Clear to Auscultation, Normal Air Movement Abdomen: Normal Bowel Sounds, Soft, No Tenderness Neurological: Normal Speech, Sensation Intact, Cranial Nerves 3-12 NL, strength in left upper 2/5 and lower extremity 0/5 Extremities: No Clubbing, No Cyanosis, No Edema Current Medications: Current Medications Sig/Jose Guadalupe Start time Last Medication Dose Route Stop Time Status Admin Aspirin Buffered 81 MG DAILY 07/20 1000 AC 07/22 PO 0820 Atorvastatin Calcium 40 MG 1700 07/19 2200 AC 07/21 PO 1711 Divalproex Sodium 750 MG BID 07/19 2230 AC 07/22 PO 0820 Enoxaparin Sodium 40 MG DAILY 07/20 1000 AC 07/22 SC 0821 Levothyroxine Sodium 0.05 MG DAILY AC 07/20 0700 AC 07/22 PO 0644 Montelukast Sodium 10 MG DAILY 07/20 1000 AC 07/22 PO 0820 Ondansetron HCl 4 MG .STK-MED ONE 07/21 1946 DC IM 07/21 1947 Ondansetron HCl 4 MG Q6P PRN 07/20 2214 AC 07/21 IV 1950 Polyethylene Glycol 17 GM DAILY 07/20 2037 AC 07/22 PO 0821 Quetiapine Fumarate 25 MG QPM 07/20 2199 AC 07/21 PO 2020 Senna/Docusate Sodium 1 TAB BID 07/20 2199 AC 07/22 PO 0820 Tramadol HCl 50 MG Q6 PRN 07/20 2044 AC 07/22 PO 0429 Last 24 Hrs of Lab/John Results Last 24 Hrs of Labs/Mics: Laboratory Tests 07/22/16 0842: Anion Gap 10, Estimated GFR > 60, BUN/Creatinine Ratio 8.8, CBC w Diff Pending, WBC Pending, RBC Pending, Hgb Pending, Hct Pending, MCV Pending, MCH Pending, RDW Pending, Plt Count Pending, MPV Pending, PUBS MCHC Pending Assessment/Plan Assessment: Patient is a 46-year-old woman with past medical history significant for asthma, seizure disorder, urinary incontinence and foot drop of unknown etiology presented to the ED with a chief complaints of acute left-sided upper and lower extremity started in the evening at around 4 PM. She reported that her symptoms started while she was on a bus. She noticed acute left-sided upper and lower extremity weakness could not able to grab her stuff. 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 Assessments and plan: 1. Acute upper and lower extremity weakness possible TIA versus stroke versus Possible malingering : * Continuous cardiac monitoring for any arrhythmias. * MRI and head CT has been negative for any acute intracranial finding. * Patient passed bedside swallow evaluation, on regular diet now. * Blood pressure continues to remain borderline, hold off any antihypertensive for now, per med permissive hypertension to keep blood pressure more than 150. * Patient already received high-dose aspirin 325 in the ER we'll continue with aspirin 81 mg daily and Lipitor 40 mg. * Neurology on board, has not recommended any additional intervention at this point. * PT/OT on board 2. History of seizures * Continue home dose of Depakote and Seroquel. 3. DVT prophylaxis with subcutaneous Lovenox 4. Mild to moderate pain controlled with Tylenol. 5. Full code. Problem List: 1. History of CVA (cerebrovascular accident) without residual deficits 2. CVA (cerebral vascular accident) 3. Urinary incontinence 4. Left arm weakness 5. Left leg weakness 6. Seizure disorder Pain Ratin Pain Location: Back Pain Goal: Remain pain free Pain Plan: Ultram Tylenol Tomorrow's Labs & Rationales: None
[2016-07-22 08:01] VITALS: BP 110/60
[2016-07-22 09:41] LABS: ABSOLUTE BASOPHIL COUNT 0.2 /CUMM (0.0-0.2); ABSOLUTE EOSINOPHIL COUNT 0.3 /CUMM (0.0-0.7); ABSOLUTE GRANULOCYTE CT 5.5 /CUMM (1.4-6.5); ABSOLUTE LYMPH COUNT 4.5 /CUMM (1.2-3.4); ABSOLUTE MONOCYTE COUNT 0.4 /CUMM (0.10-0.60); BASOPHIL % 2.2 % (0.0-2.0); EOSINOPHIL % 2.5 % (0-5); GRANULOCYTE % 50.1 % (42.2-75.2); HEMATOCRIT 35.1 % (37-47); MEAN CORPUSCULAR HGB CONC 34.1 G/DL (33.0-37.0); MEAN CORPUSCULAR VOLUME 99.8 FL (81.0-99.0); MEAN PLATELET VOLUME 9.8 FL (7.4-10.4); RBC DISTRIBUTION WIDTH 12.7 % (11.5-14.5); RED BLOOD CELL CT 3.52 /CUMM (4.20-5.40)
[2016-07-22 10:29] LABS: WHITE BLOOD CELL COUNT 10.9 /CUMM (4.8-10.8)
[2016-07-22 10:30] LABS: PLATELET COUNT 162 /CUMM (130-400)
--- NOTE | 2016-07-22 11:09 | Patient Discharge Instructions ---
Discharge Instructions General Discharge Information You were seen/treated for: Left upper and lower extremity weakness of unknown etiology, likely secondary to mild cervical spondylosis, disc rotation at L5, and/or musculoskeletal. Neurology has not recommended any additional intervention at this time, Patient likely to benefit from physical therapy she is to get at the short-term rehabilitation.. Special Instructions: Please actively participated in the physical therapy to get maximum benefit to relieve left upper and lower extremity weakness. Please take prednisone as directed Seek medical help in case of emergency, call to the nearest emergency room. Diet Continue normal diet: Yes Recommended Diet: Regular Activity Activity Self Limited: Yes Acute Coronary Syndrome Inclusion Criteria At DC or during hospital stay patient has or had the following: ACS DIAGNOSIS No Discharge Core Measures Meds if any: Prescribed or Continued at Discharge Meds if any: NOT Prescribed or Continued at Discharge Congestive Heart Failure Inclusion Criteria At DC or during hospital stay patient has or had the following: CHF DIAGNOSIS No Discharge Core Measures Meds if any: Prescribed or Continued at Discharge Meds if any: NOT Prescribed or Continued at Discharge Cerebrovascular accident Inclusion Criteria At DC or during hospital stay patient has or had the following: CVA/TIA Diagnosis No Discharge Core Measures Meds if any: Prescribed or Continued at Discharge Meds if any: NOT Prescribed or Continued at Discharge Venous thromboembolism Inclusion Criteria VTE Diagnosis No VTE Type NONE VTE Confirmed by (Test) NONE Discharge Core Measures - Per Current guidelines, there needs to be overlap - treatment for the first 5 days of Warfarin therapy. - If discharged on Warfarin prior to 5 days of - overlap therapy, the patient will need to be - assessed for post discharge needs including - *Post discharge parental anticoagulation - *Warfarin and/or parental anticoagulation education - *Follow up date to check INR post discharge At least 5 days overlap therapy as Inpatient No Meds if any: Prescribed or Continued at Discharge Note: Overlap Therapy is Warfarin and Anticoagulant Meds if any: NOT Prescribed or Continued at Discharge
--- NOTE | 2016-07-22 13:52 | NUR ---
PATIENT STATES SHE IS EXPERIENCING RIGHT ARM WEAKNESS. MD EAMON DESHPANDE AWARE.
--- NOTE | 2016-07-22 14:56 | NUR ---
PATIENT IS REFUSING THE BED ALARM AND CHAIR ALARM. PATIENT VERBALIZED UNDERSTANDING OF THE RISKS, MD EAMON DESHPANDE NOTIFIED.
--- NOTE | 2016-07-22 15:41 | MRI REPORT ---
EXAMINATION: MR CERVICAL SPINE WITHOUT CONTRAST CLINICAL INFORMATION: 46-year-old woman with left upper and lower extremity weakness. COMPARISON: None. TECHNIQUE: MRI of the cervical spine without contrast was obtained using routine sequences. FINDINGS: Images are degraded by patient motion. There is straightening of the normal cervical lordosis. Vertebral bodies are normal in height. Bone marrow is normal in signal intensity on all sequences. Intervertebral disc volumes are maintained. The craniocervical junction is normal in appearance. No focal cord signal abnormality is seen at any level. On sagittal images only, bulky facet arthrosis is noted on the left side at the T2-T3 level, leading to at least moderate left foraminal narrowing. C2-C3, C3-C4, C4-C5, C5-C6: The disc contours are within the range of normal and no significant canal or foraminal stenosis is appreciated. C6-C7: There is a broad-based central soft disc protrusion that effaces the ventral CSF space and contributes to mild canal stenosis. Uncovertebral hypertrophy and facet arthrosis lead to mild narrowing of the neural foramina. C7-T1: The disc contour is normal and the canal and foramina appear patent. IMPRESSION: Motion degraded study demonstrates mild cervical spondylosis that is most conspicuous at C6-C7. No severe canal or foraminal stenosis is noted at any level.
--- NOTE | 2016-07-22 16:27 | NUR ---
PATIENT STATES, "I CAN'T TAKE DEEP BREATHS." PT DENIES CHEST PAIN AT THIS TIME, VITALS - RR 20 SPO2 95% HR 65 BP 140/70 MD EAMON DESHPANDE MD AWARE.
[2016-07-22 16:29] VITALS: BP 140/70
--- NOTE | 2016-07-22 16:46 | NUR ---
MD EAMON DESHPANDE AT BEDSIDE SPEAKING TO PATIENT. PER PATIENT WILL REMAIN ON RM AIR AT THIS TIME. THIS NURSE WILL ELEVATE HOB AND CONT TO MONITOR PATIENT.
--- NOTE | 2016-07-22 17:19 | MRI REPORT ---
EXAMINATION: MR LUMBAR SPINE WITHOUT CONTRAST CLINICAL INFORMATION: Weakness on the left side. COMPARISON: None TECHNIQUE: MRI of the lumbar spine without contrast was obtained using routine sequences. FINDINGS: VERTEBRAL BODIES AND PARASPINAL STRUCTURES: There are 5 [id number] lumbar-type vertebral bodies. Vertebral body height, signal, and sagittal alignment are maintained. No marrow edema. No evidence of spondylolyses. Intervertebral discs appear fairly normal in height without significant desiccation. No scoliosis. The aorta is normal in caliber. No adenopathy. The imaged SI joints appear unremarkable. CONUS MEDULLARIS AND CAUDA EQUINA: The conus appears to terminate at L1. There is fatty infiltration of the filum terminale noted at the L3-L4 level without thickening. SPINAL LEVELS: L1-L2, L2-L3, L3-L4: Normal disc morphology. Mild facet hypertrophy. No significant canal or foraminal stenosis. L4-L5: Mild disc bulge, facet hypertrophy, and thickening of ligamentum flavum. Minimal flattening of the ventral thecal sac. The foramina are well maintained. L5-S1: There is a left foraminal to extraforaminal disc protrusion which appears to contact the exiting left L5 nerve root in the extraforaminal region. The canal and right foramen are well maintained. IMPRESSION: L5-S1: Shallow left foraminal to extraforaminal disc protrusion contacting the exiting left L5 nerve root. Otherwise minor lumbar spondylosis.
[2016-07-23 00:06] VITALS: BP 100/60
--- NOTE | 2016-07-23 07:53 | Discharge Summary ---
Visit Information Visit Dates Admission Date: 07/19/16 Discharge Date: 07/24/2016 Hospital Course Course Attending Physician: MAGED HAWLEY MD Primary Care Physician: PATIENT HAS NO PRIMARY CARE DR Consulting Request: Consulting Specialty: Neurology Consulting Physician: Reason for Consult: weakness n the left upper and lower extrimity Hospital Course: is a 46 y/o F with PMHx of hypothyroidism, asthma, seizure disorder, urinary incontinence bilateral foot drop of unknown etiology, PTSD, insomnia and CVA in May 2016 who presents with acute onset left arm and leg weakness which started around 3:30 PM on the day of current presentation. Patient was taking the bus from [place] where she lives to [place] when she noted that her left arm felt weak and she had difficulty grabbing her belongings which had fallen on the floor. She asked the pmo business analyst if there was a nearby hospital and was told to get off at [place]. She had to drag her feet on her way to the hospital but it is unclear whether she had leg weakness as she has foot drop at baseline. Patient had a stroke in May 2016 while visiting friends in [place] and was subsequently hospitalized for 6 days. She was supposed to be discharged to a rehab facility but the plan fell through due to her lack of insurance and she ended up coming back to [place]. She denies residual deficit after the stroke. Of note, patient is homeless and lives in a care home. Her PCP prescribes her medications but she is not consistent with follow-up. Vitals on admission temperature 97.2, pulse 91, blood pressure 128/89 General Appearance: Alert, No Acute Distress, Skin: Grossly normal HEENT: PEERLA Neck: Supple, No JVD Cardiovascular: Regular Rate, Normal S1, Normal S2, No Murmurs Lungs: Lungs clear to examination bilaterally Abdomen: Normal Bowel Sounds, Soft, positive suprapubic tenderness Neurological: Decreased Left low extremity 2/5, decreased in left lower extremity strength 2/5 Strength at 5/5 in the right upper and lower extremities, decreased reflexes in lower extremities with intact sensations. Extremities: No Clubbing, No Cyanosis, No Edema Vascular: Normal Pulses. Pertinent labs on admission leukocytosis without any bandemia normal BP normal PTT and INR. CT head: There are no acute intracranial findings. Patient received high-dose aspirin 325 in the ER we continued with aspirin 85 mg daily and Lipitor 40 mg. Her seizure medication was also continued (Depakote 750mg PO BID) Neurologist evaluated the patient and recommend MRI of brain w/o QUINN to look for ischemia which came back negative for ischemia. carotid US negative. Patient continued with left sided weakness. There is no evidence for CVA/TIA. She did state that she has spinal stenosis and some chronic neck and low back pain. MRI studies confirm some disease, however no significant cord compression. PT/OT recommending STR. She needs to follow up with neuro. clinic at [facility]. Complications: Non Allergies: Coded Allergies: cephalexin (From KEFLEX) (Severe, ANAPHYLAXIS 07/19/16) ciprofloxacin (Severe, ANAPHYLAXIS 07/19/16) egg (Severe, ANAPHYLAXIS 07/19/16) Penicillins (ANAPHYLAXIS 07/19/16) Disposition Summary Disposition Principal Diagnosis: -Acute upper and lower left extremity weakness with unclear etiology -History of seizures Additional Diagnosis: As above Discharge Disposition: STR Discharge Instructions General Discharge Information Code Status: Full Code Patient's Diet: Regular diet Patient's Activity: As tolerated Follow-Up Instructions/Appts: -Follow-up with your primary care physician 1 week after discharge Medications at Discharge Discharge Medications: Continue taking these medications: Prazosin HCl (Prazosin HCl) 1 MG CAPSULE 1 Capsule ORAL Every night Qty = 30 Comments: PER PT Divalproex Sodium (Divalproex Sodium) 250 MG TABLET. 750 Milligram ORAL TWICE DAILY Qty = 30 Comments: PER PT Meclizine HCl (Meclizine HCl) 12.5 MG TABLET 1 Tablet ORAL as needed for VERTIGO Qty = 20 Comments: PER PT Levothyroxine Sodium (Levothyroxine Sodium) 50 MCG TABLET 1 Tablet ORAL DAILY BEFORE BREAKFAST Qty = 30 Comments: PER PT Aspirin (Lo-Dose Aspirin EC) 81 MG TABLET.DR 1 Tablet ORAL DAILY Qty = 30 Comments: PER PT Albuterol Sulfate (Proair Hfa) 90 MCG HFA.AER.AD 2 Puff Inhale through mouth as needed for ASTHMA Qty = 9 Comments: PER PT Topiramate (Topiramate) 25 MG TABLET 1 Tablet ORAL TWICE DAILY Qty = 60 Comments: PER PT Quetiapine Fumarate (Quetiapine Fumarate) 25 MG TABLET 1 Tablet ORAL Every night Qty = 30 Comments: PER PT Cyclosporine (Restasis) 0.05 % DROPERETTE 1 Drop In the eye TWICE DAILY Qty = 60 Comments: PER PT Tiotropium [place] (Spiriva) 18 MCG CAP.W.DEV 1 Capsule Inhale through mouth DAILY Qty = 30 Comments: PER PT Fluticasone/Salmeterol (Advair 250-50 Diskus) 250 MCG-50 MCG/DOSE BLST.W.DEV 1 Puff Inhale through mouth TWICE DAILY Qty = 60 Comments: PER PT Montelukast Sodium (Montelukast Sodium) 10 MG TABLET 1 Tablet ORAL DAILY Qty = 30 Comments: PER PT Start taking the following new medications: Prednisone (Prednisone) 10 MG TABLET 1 Tablet ORAL See Instructions Qty = 36 No Refills Instructions: On Take 07/24- takes 6 tabs daily 07/25-07/26 take 5 tabs daily 07/27-07/28 take 4 tabs daily 07/29-07/30 take 3 tabs daily 07/31-08/01 take 2 tabs daily 08/02-08/03 take 1 tab daily then stop Copies To: MAGED HAWLEY MD Attending Review Statement Documenting Attending: MAGED HAWLEY MD Other Findings: The patient was seen and discussed with house staff. No evidence of CVA or TIA in this patient and although she stated she had been hospitalized in [place] for same, she could not recall where in [place] and thus no records were obtained. MRI studies of C-spine and L-spine show no acute cord compression or other findings that would warrant emergent referral. Will go to short term rehab for left sided weakness.
--- NOTE | 2016-07-23 08:00 | PN- Housestaff ---
CHARLEE KHALIL,[facility] 07/23/16 0800: Subjective Follow-up For: Left upper and lower extremity weakness Back pain Tele-Events Since Last Visit: Sinus rhythm heart rate between 6782, no overnight events. Subjective: Patient seen and examined this morning. She was sitting comfortably in her chair in no acute distress. Continues to complain of weakness in the left upper and lower extremity, continues to complain of lower back pain, he has been afebrile, other vitals within normal limits. Review of Systems Constitutional: Denies: chills, fever. Cardiovascular: Denies: chest pain, palpitations. Respiratory: Denies: cough, short of breath, sputum production. Gastrointestinal: Denies: abdominal pain, constipation, diarrhea, nausea, vomiting. Genitourinary: Denies: dysuria, frequency. Objective Last 24 Hrs of Vital Signs/I&O Vital Signs Date Time Temp Pulse Resp B/P Pulse O2 O2 Flow FiO2 Ox Delivery Rate 07/23 0006 98.1 72 20 100/60 93 Room Air 07/22 1629 98.1 62 18 140/70 91 Room Air Intake & Output 07/23 1600 07/23 0800 07/23 0000 Intake Total 200 120 Output Total 300 Balance 200 -180 Intake, Oral 200 120 Number 1 Bowel Movements Output, Urine 300 Physical Exam General Appearance: Alert, Oriented X3, Cooperative, No Acute Distress Cardiovascular: Regular Rate, Normal S1, Normal S2, No Murmurs Lungs: Clear to Auscultation, Normal Air Movement Abdomen: Normal Bowel Sounds, Soft, No Tenderness Neurological: LUE 2/5, LLE 2/5 Extremities: No Clubbing, No Cyanosis, No Edema Current Medications: Current Medications Sig/Jose Guadalupe Start time Last Medication Dose Route Stop Time Status Admin Aspirin Buffered 81 MG DAILY 07/20 1000 AC 07/23 PO 0937 Atorvastatin Calcium 40 MG 1700 07/19 2200 AC 07/22 PO 1626 Bisacodyl 10 MG DAILY PRN 07/22 2045 AC 07/22 [place] 2154 Divalproex Sodium 750 MG BID 07/19 2230 AC 07/23 PO 0937 Enoxaparin Sodium 40 MG DAILY 07/20 1000 AC 07/23 SC 0937 Levothyroxine Sodium 0.05 MG DAILY AC 07/20 0700 AC 07/23 PO 0701 Lorazepam 1 MG ONE PRN 01/23 1400 DC 07/22 PO 07/22 1401 1400 Lorazepam 1 MG ONE PRN 07/22 1345 DC PO 07/22 1346 Montelukast Sodium 10 MG DAILY 07/20 1000 AC 07/23 PO 0937 Ondansetron HCl 4 MG Q6P PRN 07/20 2215 AC 07/21 IV 1950 Polyethylene Glycol 17 GM DAILY 07/20 2037 AC 07/23 PO 0937 Quetiapine Fumarate 25 MG QPM 07/20 2199 AC 07/22 PO 204 Senna/Docusate Sodium 1 TAB BID 07/20 2199 AC 07/23 PO 0937 Tramadol HCl 50 MG Q6 PRN 07/20 2044 AC 07/23 PO 0430 Assessment/Plan Assessment: Patient is a 46-year-old woman with past medical history significant for asthma, seizure disorder, urinary incontinence and foot drop of unknown etiology presented to the ED with a chief complaints of acute left-sided upper and lower extremity started in the evening at around 4 PM. She reported that her symptoms started while she was on a bus. She noticed acute left-sided upper and lower extremity weakness could not able to grab her stuff. She informed the grain combine driver and was dropped to the [facility] for the further assessment. Assessments and plan: 1. Acute upper and lower extremity weakness possible TIA versus stroke versus Possible malingering : * Continuous cardiac monitoring for any arrhythmias. * MRI and head CT has been negative for any acute intracranial finding. * Patient passed bedside swallow evaluation, on regular diet now. * Blood pressure continues to remain borderline, hold off any antihypertensive for now, per med permissive hypertension to keep blood pressure more than 150. * Patient already received high-dose aspirin 325 in the ER we'll continue with aspirin 81 mg daily and Lipitor 40 mg. * Neurology on board, has not recommended any additional intervention at this point. Neurology called again today, with follow-up recommendations. * PT/OT on board 2. History of seizures * Continue home dose of Depakote and Seroquel. 3. DVT prophylaxis with subcutaneous Lovenox 4. Mild to moderate pain controlled with Tylenol. 5. Full code. Problem List: 1. Seizure disorder 2. Left leg weakness 3. Left arm weakness 4. History of CVA (cerebrovascular accident) without residual deficits Pain Ratin Pain Location: back Pain Goal: Remain pain free Pain Plan: Ultram Tylenol Tomorrow's Labs & Rationales: None Consulting Request: Consulting Specialty: Neurology Consulting Physician: Reason for Consult: weakness n the left upper and lower extrimity MAGED HAWLEY MD 07/23/16 2312: Attending MD Review Statement Attending Statement Attending MD Statement: examined this patient, discuss w/resident/PA/HOSPITAL MONITOR, agreed w/resident/PA/HOSPITAL MONITOR, reviewed EMR data (avail), discussed with nursing, discussed with case mgmt, reviewed images, amended to note Attending Assessment/Plan: The patient was seen and discussed with house staff. Appreciate neuro input. No evidence of CVA. Short term rehab planned.
--- NOTE | 2016-07-23 09:47 | ECHOCARDIOGRAM REPORT ---
EDDIE BANERJEE Age: 46 : 1970 Gender: F Exam Date: 07/22/2016 19:13 Exam Location: 1 [address] Ht (in): 62 Wt (lb): 200 BSA: 2.04 BP: 110 / 60 Ordering Physician: ANGELA LEAVITT MD Referring Physician: ANGELA LEAVITT MD Technologist: Amberly Rudd [facility] Room Number: 182 Indications: CARDIOMYOPATHY Rhythm: Sinus Technical Quality: Poor, Technically difficult study FINDINGS Left Ventricle Normal size left ventricle.left ventricle not well visualized, grossly normal. No obvious regional wall motion abnormalities. Right Ventricle Right ventricle not well visualized, grossly normal. Right Atrium Normal right atrial size. Left Atrium Left atrium not well visualized, grossly normal. Mitral Valve Mitral valve thickened. Aortic Valve Trileaflet aortic valve. Diffuse thickening (sclerosis) of the aortic valve cusps without reduced excursion. No aortic stenosis. No aortic regurgitation. Tricuspid Valve Tricuspid valve not well visualized. Trace tricuspid regurgitation. Pulmonic Valve Pulmonic valve not well visualized. Pericardium Small pericardial effusion. Great Vessels Aortic root and proximal ascending aorta not well visualized, grossly normal. CONCLUSIONS 1. THis was a technically difficult and very limited examination with techically suboptimal apical images. 2. Aortic sclerosis is present with no valvular stenosis or insufficiency. 3. Mitral leaflet thickening is present 4. A very small posterior pericardial effusion is present 5. The left ventricular chamber size appears normal. Accurate wall motion assessment was not possible, however, the ejection fraction appears normal. 6. The right heart structures were not well assessed. Minimal tricuspid insufficiency is present. The RV systolic pressure could not be accurately assessed. Sawyer Maravilla M.D. (Electronically Signed) Final Date: 23 July 2016 09:47 MEASUREMENTS (Male / Female) Normal Values 2D ECHO LV Diastolic Diameter PLAX 3.9 cm 4.2 - 5.9 / 3.9 - 5.3 cm LV Systolic Diameter PLAX 2.0 cm 2.1 - 4.0 cm LV Fractional Shortening PLAX 48.7 % 25 - 46 % LV Ejection Fraction 2D Teich 80.7 % IVS Diastolic Thickness 1.2 cm LVPW Diastolic Thickness 1.2 cm LV Relative Wall Thickness 0.6 RV Internal Dim ED PLAX 1.9 cm 1.9 - 3.8 cm LVOT Diameter 2.0 cm Aortic Root Diameter 2.6 cm LA Systolic Diameter LX 3.8 cm 3.0 - 4.0 / 2.7 - 3.8 cm LA Volume 35.0 cm 18 - 58 / 22 - 52 cm Ascending Aorta Diameter 2.6 cm DOPPLER AV Peak Velocity 127.0 cm/s AV Peak Gradient 6.5 mmHg AV Mean Velocity 89.7 cm/s AV Mean Gradient 4.0 mmHg AV Velocity Time Integral 28.0 cm LVOT Peak Velocity 86.5 cm/s LVOT Peak Gradient 3.0 mmHg LVOT Mean Velocity 55.2 cm/s LVOT Mean Gradient 1.0 mmHg LVOT Velocity Time Integral 15.0 cm LVOT Stroke Volume 47.1 cm AV Area Cont Eq vti 1.7 cm AV Area Cont Eq pk 2.1 cm MV Peak Velocity 90.9 cm/s MV Peak Gradient 3.3 mmHg MV Mean Velocity 36.8 cm/s MV Mean Gradient 1.0 mmHg Mitral E Point Velocity 69.1 cm/s Mitral A Point Velocity 51.3 cm/s Mitral E to A Ratio 1.3 MV PHT Velocity 98.9 cm/s MV Deceleration Briscoe 415.0 cm/s MV Pressure Half Time 71.5 ms MV Area PHT 3.1 cm MV Deceleration Time 285.0 ms TR Peak Velocity 86.9 cm/s TR Peak Gradient 3.0 mmHg Right Atrial Pressure 5.0 mmHg Pulmonary Artery Systolic Pressu 8.0 mmHg Right Ventricular Systolic Press 8.0 mmHg PV Peak Velocity 103.0 cm/s PV Peak Gradient 4.2 mmHg PV Mean Velocity 72.5 cm/s PV Mean Gradient 2.0 mmHg PV Velocity Time Integral 26.4 cm LV E' Lateral Velocity 10.3 cm/s Mitral E to LV E' Lateral Ratio 6.7 LV E' Septal Velocity 7.7 cm/s Mitral E to LV E' Septal Ratio 9.0
--- NOTE | 2016-07-23 15:52 | PN- Neurology ---
Subjective Subjective: 46 year old who developed new onset of left arm weakness. Her MRI brain is pristine and there is no evidence she has ever had a stroke. Her Carotids are also nice and patent. The only possible explanation is that there is severe canal stenosis and mild cord flattening at level C3-4 (see image on the axial images, see how the disc touches the cord). She still maintains that her arm is weak. Review of Systems: no change Objective Vital Signs and I&Os Vital Signs Date Time Temp Pulse Resp B/P Pulse O2 O2 Flow FiO2 Ox Delivery Rate 07/23 1231 Room Air 07/23 1207 Room Air 07/23 1206 Room Air 07/23 1153 Room Air 07/23 0006 98.1 72 20 100/60 93 Room Air 07/22 1629 98.1 62 18 140/70 91 Room Air Intake & Output 07/23 1600 07/23 0800 07/23 0000 07/22 1600 07/22 0800 07/22 0000 Intake Total 200 120 240 400 Output Total 601 300 500 500 400 Balance -601 200 -180 -260 -100 -400 Intake, Oral 200 120 240 400 Number 1 Bowel Movements Output, Stool 1 Output, Urine 600 300 500 500 400 Patient 214 lb Weight Physical Exam: Alert, amd oriented x3 EOMI, JOYCELYN, face symmetric Does not give full effort in left arm so it is hard to tell whether she has true weakness or not. Current Medications: Current Medications Sig/Jose Guadalupe Start time Last Medication Dose Route Stop Time Status Admin Aspirin Buffered 81 MG DAILY 07/20 1000 07/23 PO 0937 Atorvastatin Calcium 40 MG 1700 07/19 2200 07/22 PO 1626 Bisacodyl 10 MG DAILY PRN 07/22 [place] 2154 Divalproex Sodium 750 MG BID 07/19 22307/23 PO 0937 Enoxaparin Sodium 40 MG DAILY 07/20 1000 07/23 SC 0937 Levothyroxine Sodium 0.05 MG DAILY AC 07/20 0700 AC 07/23 PO 0701 Montelukast Sodium 10 MG DAILY 07/20 1000 07/23 PO 0937 Ondansetron HCl 4 MG Q6P PRN 07/205 07/21 IV 1950 Polyethylene Glycol 17 GM DAILY 07/20 PO 0937 Quetiapine Fumarate 25 MG QPM 07/20 2199 AC 07/22 PO 204 Senna/Docusate Sodium 1 TAB BID 07/20 2199 AC 07/23 PO 0937 Tramadol HCl 50 MG Q6 PRN 07/20 2044 AC 07/23 PO 1309 Results Recent Imaging Studies: MRI C-spine personal review: On series 11/03, Image axial images there is a loss of the normal T2 signal within the cervical canal due to a fragmanted disc anteriorly contacting the cord and likely thickened ligamentum flavum posteriorly. This large disc extrusion is again seen indenting the spinal cord ( without actual direct contact) in series 10/04 Image 01/08. MRI brain is pristine. No lesions new or old. CD is normal. Assessment/Plan Assessment: 46 year old homeless woman who developed left arm weakness. She claims she has had a prior stroke and seizures, but there is no evidence for an old stroke or any structural abnormality. At worst, she may have significant canal narrowing at C6-7 with cord indentation but that should not give her such striking arm weakness. More likely then not, this is either somatization or malingering. Plan: 1. Recommend PT and if possible rehab for left arm. 2. One week course of 60mg prednisone daily with taper. Neurology signing off.
[2016-07-23 16:27] VITALS: BP 98/68
[2016-07-24 00:10] VITALS: BP 94/64
--- NOTE | 2016-07-24 07:54 | PN- Housestaff ---
CHARLEE KHALIL,[facility] 07/24/16 0754: Subjective Follow-up For: Left upper and lower extremity weakness of un known etiology Subjective: Patient seen and examined this morning. She was sitting in her chair no acute distress. She continues to have left-sided upper and lower extremity weakness of unknown etiology, CT head and MRI head has been negative for any acute findings. Neurology has not recommended any additional treatment at this point other than starting her on prednisone taper and PT therapy which she is can get a short-term rehabilitation to which she is can be discharge possibly today. Review of Systems Constitutional: Reports: see HPI. Objective Last 24 Hrs of Vital Signs/I&O Vital Signs Date Time Temp Pulse Resp B/P Pulse O2 O2 Flow FiO2 Ox Delivery Rate 07/24 1325 98.2 60 18 106/72 07/24 0802 98.2 60 18 97 Room Air 07/24 0010 98.3 90 18 94/64 96 Room Air 07/23 1627 98.1 67 18 98/68 94 Room Air Intake & Output 07/24 1600 07/24 0800 07/24 0000 Intake Total 720 960 Output Total 2000 1800 Balance -1280 -840 Intake, Oral 720 960 Output, Urine 2000 1800 Physical Exam General Appearance: Alert, Oriented X3, Cooperative, No Acute Distress Cardiovascular: Regular Rate, Normal S1, Normal S2, No Murmurs Lungs: Clear to Auscultation, Normal Air Movement Abdomen: Normal Bowel Sounds, Soft, No Tenderness Neurological: Sensation Intact, Cranial Nerves 3-12 NL, strength in upper and lower left extremity 2/5 Extremities: No Clubbing, No Cyanosis, No Edema Current Medications: Current Medications Sig/Jose Guadalupe Start time Last Medication Dose Route Stop Time Status Admin Aspirin Buffered 81 MG DAILY 07/20 1000 DCD 07/24 PO 0957 Atorvastatin Calcium 40 MG 1700 07/19 2200 DCD 07/23 PO 1701 Bisacodyl 10 MG DAILY PRN 07/22 2044 DCD 07/22 [place] 215 Divalproex Sodium 750 MG BID 07/19 2229 DCD 07/24 PO 0957 Enoxaparin Sodium 40 MG DAILY 07/20 1000 DCD 07/24 SC 0958 Levothyroxine Sodium 0.05 MG DAILY AC 07/20 0700 DCD 07/24 PO 0655 Montelukast Sodium 10 MG DAILY 07/20 1000 DCD 07/24 PO 0958 Nystatin 1 KADEEM BID 07/23 2241 DCD 07/24 TOP 0959 Ondansetron HCl 4 MG Q6P PRN 07/20 2214 DCD 07/21 IV 1950 Polyethylene Glycol 17 GM DAILY 07/20 2037 DCD 07/24 PO 0958 Prednisone 60 MG DAILY 07/23 1720 DCD 07/24 PO 0957 Quetiapine Fumarate 25 MG QPM 07/20 2199 DCD 07/23 PO 2059 Senna/Docusate Sodium 1 TAB BID 07/20 2199 DCD 07/24 PO 0958 Tramadol HCl 50 MG Q6 PRN 07/20 2044 DCD 07/24 PO 0958 Assessment/Plan Assessment: Patient is a 46-year-old woman with past medical history significant for asthma, seizure disorder, urinary incontinence and foot drop of unknown etiology presented to the ED with a chief complaints of acute left-sided upper and lower extremity started in the evening at around 4 PM. She reported that her symptoms started while she was on a bus. She noticed acute left-sided upper and lower extremity weakness could not able to grab her stuff. She informed the entry level truck driver and was dropped to the [facility] for the further assessment. Assessments and plan: 1. Acute upper and lower extremity weakness possible TIA versus stroke versus Possible malingering : * Continuous cardiac monitoring for any arrhythmias. * Neurology on board, has not recommended any additional intervention at this point. She continues to have left-sided upper and lower extremity weakness of unknown etiology, CT head and MRI head has been negative for any acute findings. Neurology has not recommended any additional treatment at this point other than starting her on prednisone taper and PT therapy which she is can get a short- term rehabilitation to which she is can be discharge possibly today. * PT/OT on board 2. History of seizures * Continue home dose of Depakote and Seroquel. 3. DVT prophylaxis with subcutaneous Lovenox 4. Mild to moderate pain controlled with Tylenol. 5. Full code. Problem List: 1. Left arm weakness 2. Left leg weakness Pain Ratin Pain Location: Lower back Pain Goal: Remain pain free Pain Plan: Ultram Tylenol Tomorrow's Labs & Rationales: None patient to be discharged Consulting Request: Consulting Specialty: Neurology Consulting Physician: Reason for Consult: weakness n the left upper and lower extrimity Discharge Plan Discharge Disposition: STR/NH Stable for Discharge? Yes Anticipated Discharge (Day): today If Discharged Today/In 24 Hrs: W-10/discharge paper done, DC summary done, CMR done MAGED HAWLEY MD 07/24/162035: Attending MD Review Statement Attending Statement Attending MD Statement: examined this patient, discuss w/resident/PA/CONTINUOUS CONVEYOR SCREEN DRIER, agreed w/resident/PA/CONTINUOUS CONVEYOR SCREEN DRIER, reviewed EMR data (avail), discussed with nursing, discussed with case mgmt, reviewed images, amended to note Attending Assessment/Plan: The patient was seen and discussed with house staff. Agree with the plan of care as outlined. OK to discharge to short term rehab today. Appreciated neuro follow -up.
[2016-07-24 08:02] VITALS: BP 106/72
[2016-07-24] MEDS ORDERED: PREDNISONE10 M2 PO (09:56)
[2016-07-24 13:25] VITALS: BP 106/72
--- NOTE | 2016-07-24 16:33 | NUR ---
LATE ENTRY: Referral received yesterday via electronic order picker. This patient is a 46 year old female, admitted to the hospital on 07/19/16 with a TIA. Reason For Social Work Consult: "homeless, social issues". Case reviewed with oil field caser. Patient has been living at [facility] in [place]. Some uncertainty as to whether or not she is a permanent resident there or only using it as a warming halfway. Case Management assessment indicates some addititional discrepencies. Patient was discharged today to [facility].
== END 2016-07-24 13:55 | DRG 861 ==
LOC: ENRESERVTM → ENRESERVDT → ERH 17:11 → ERHI 19:36 → ENPENDDIS 19:36 → 1NO 19:36
PROVIDERS: Emergency Medicine; Student in an Organized Health Care Education/Training Program; ADMIT Internal Medicine
DX: R53.1 Weakness (principal); F45.9 Somatoform disorder, unspecified; G40.909 Epilepsy, unspecified, not intractable, without status epilepticus; G81.94 Hemiplegia, unspecified affecting left nondominant side; F43.10 Post-traumatic stress disorder, unspecified; E03.9 Hypothyroidism, unspecified; J45.909 Unspecified asthma, uncomplicated; M21.372 Foot drop, left foot; M21.371 Foot drop, right foot; F17.200 Nicotine dependence, unspecified, uncomplicated
CPT/HCPCS: 1NP; 70552; 72141; 72148; 70553; 80307; 82436; 93005; 93010; 93306; 97110-GO; 97116-GO; 97162-GP; 97165-GO; A9579; J1650; J2060; J2405

== ENCOUNTER 2017-11-14 20:30 | Inpatient (IN) | payer OTHER ==
[~2017-11-14] VITALS: Ht 157.5 cm; Wt 107.3 kg
[~2017-11-14 20:30] MED LIST: ADVAIR 250-501 EACH INH; DIVALPROEX SOD250 M2 PO; LEVOTHYROXINE50 MCG PO; LO-DOSE ASPIRIN81 MG PO; MECLIZINE HCL12.5 M1 PO; MONTELUKAST SOD10 M1 PO; PRAZOSIN HCL1 M1 PO; PREDNISONE10 M2 PO; PROAIR HFA8.5 GM INH; QUETIAPINE FUMA50 M1 PO; RESTASIS1 EACH OPH; SPIRIVA18 MCG INH; TOPAMAX50 M1 PO
--- NOTE | 2017-11-14 20:47 | ED NEURO DEFICIT/STROKE ---
History of Present Illness General Chief Complaint: Neuro Symptoms/ Deficit Stated Complaint: POSSIBLE CVA/STROKE Source: patient Exam Limitations: clinical condition Vital Signs & Intake/Output Vital Signs & Intake/Output Vital Signs Date Time Temp Pulse Resp B/P B/P Pulse O2 O2 Flow FiO2 Mean Ox Delivery Rate 11/15 1426 97.9 86 20 110/60 95 11/15 0800 Room Air 11/15 0626 98.4 85 20 128/72 95 Room Air 11/15 0130 99.4 96 20 134/80 94 Room Air 11/15 0007 91 18 146/83 98 Room Air Room Air 11/14 2327 95 Room Air Room Air 11/14 2035 98.0 88 22 151/94 97 Room Air ED Intake and Output 11/15 0000 11/14 1200 Intake Total Output Total Balance Patient 250 lb Weight Weight Reported by Patient Measurement Method Allergies Coded Allergies: cephalexin (From KEFLEX) (Severe, ANAPHYLAXIS 07/19/16) ciprofloxacin (Severe, ANAPHYLAXIS 07/19/16) egg (Severe, ANAPHYLAXIS 07/19/16) Penicillins (ANAPHYLAXIS 07/19/16) Reconcile Medications Albuterol Sulfate (Proair Hfa) 90 MCG HFA.AER.AD 2 PUF INH PRN ASTHMA ( Reported) Aspirin (Lo-Dose Aspirin EC) 81 MG TABLET.DR 1 TAB PO DAILY HEART/BLOOD ( Reported) Atorvastatin Calcium 40 MG TABLET 1 TAB PO DAILY LIPID (Reported) Cyclosporine (Restasis) 0.05 % DROPERETTE 1 GTT OPH BID BOTH EYES (Reported) Divalproex Sodium 250 MG TABLET.DR 750 MG PO BID SEIZURES (Reported) Duloxetine HCl 30 MG CAPSULE.DR 1 CAP PO DAILY DEPRESSION (Reported) Fluticasone/Salmeterol (Advair 250-50 Diskus) 250 MCG-50 MCG/DOSE BLST.W.DEV 1 PUF INH BID ASTHMA (Reported) Gabapentin 300 MG CAPSULE 1 CAP PO Q6 PAIN (Reported) Levothyroxine Sodium 50 MCG TABLET 1 TAB PO DAILY AC THYROID (Reported) Meclizine HCl 12.5 MG TABLET 1 TAB PO PRN VERTIGO (Reported) Metformin HCl (Glucophage) 1,000 MG TABLET 1 TAB PO BID DM (Reported) Montelukast Sodium 10 MG TABLET 1 TAB PO DAILY SUPPLEMENT (Reported) Prazosin HCl 1 MG CAPSULE 1 CAP PO QPM PTSD (Reported) Quetiapine Fumarate 50 MG TABLET 1 TAB PO QPM INSOMNIA (Reported) Tiotropium Fletcher (Spiriva) 18 MCG CAP.W.DEV 1 CAP INH DAILY ASTHMA ( Reported) Topiramate (Topamax) 50 MG TABLET 1 TAB PO QHS SEIZURE (Reported) Triage Note: PER SON SPEECH SLRRED AND CANT KEEP HEAD UP X 30 MINUTES PT SPEECH THICK : No Patient currently breastfeeds: No Past History Travel History Traveled to [place] past 21 day No Medical History Neurological: seizure Cardiovascular: NONE Respiratory: asthma Gastrointestinal: NONE Hepatic: NONE Renal: NONE Musculoskeletal: spinal stenosis, foot drop Psychiatric: insomnia, PTSD Endocrine: hyperthyroidism Blood Disorders: NONE Cancer(s): NONE [employer]/Reproductive: urinary incontinence History of MRSA: No History of VRE: No History of CDIFF: No Surgical History Surgical History: non-contributory Psychosocial History Who do you live with Other (see notes) Services at Home None What is your primary language [place]se Tobacco Use: Current Daily Use Daily Tobacco Use Amount/Type: => 5 Cigarettes daily Progress Plan of Care: Orders Procedure Date/time Status CBC WITHOUT DIFFERENTIAL 11/16 06 Active Heart Healthy Diet 11/15 B Active LIPID PANEL 11/15 06 Active GLYCOSYLATED HGB 11/15 06 Active DEPAKOTE LEVEL 11/15 06 Active CBC WITHOUT DIFFERENTIAL 11/15 0600 Complete BASIC ELECTROLYTES PLUS BUN&CR 11/15 0600 Active CULTURE,URINE 11/15 0145 Active THROAT CULTURE W/QUICK STREP 11/15 0145 Active LOWER RESPIRATORY CULTURE 11/15 0145 Active BLOOD CULTURE 11/15 0145 Active URINE DRUGS OF ABUSE 11/15 0145 Active URINALYSIS 11/15 0145 Active Weight 11/15 0111 Active Vital Signs 11/15 0111 Active Teach/Educate 11/15 011 Active Pain Treatment and Response 11/15 011 Active Nutritional Intake, Monitor 11/15 011 Active Isolation 11/15 011 Active Intake & Output 11/15 011 Active Patient Care Conference 11/15 011 Active Activity/Ambulation 11/15 011 Active Patient Data 11/15 0009 Active PT Evaluate & Treat 11/15 UNK Active Therapeutic Activities 11/15 UNK Complete PT EVAL LOW COMPLEX 20 MIN 11/15 UNK Complete Lab Add-on Test 11/15 UNK Active Intake & Output 11/14 2326 Active ED Holding Orders 11/14 2311 Active Admit to inpatient 11/14 2311 Active Vital Signs 11/14 231 Active Code Status 11/14 231 Active TROPONIN LEVEL 11/14 2040 Complete PARTIAL THROMBOPLASTIN TIME 11/14 2040 Complete PROTHROMBIN TIME 11/14 2040 Complete COMPREHENSIVE METABOLIC PANEL 11/14 2040 Complete CBC WITHOUT DIFFERENTIAL 11/14 2040 Complete NIH Stroke Scale 11/15 2039 Active FingerStick- Glucose 11/14 2036 Active Current Medications Sig/Jose Guadalupe Start time Last Medication Dose Stop Time Status Admin Prazosin HCl 1 MG QPM 11/15 2100 AC (Minipress 1 MG) Quetiapine Fumarate 25 MG QPM 11/15 2100 CAN (Seroquel) Topiramate 50 MG AT BEDTIME 11/15 2100 AC (Topamax) Atorvastatin Calcium 40 MG 1700 11/15 1700 AC 11/15 (Lipitor) 1703 Acetaminophen 650 MG Q6P PRN 11/15 1315 AC (Tylenol) Tramadol HCl 50 MG Q6P PRN 11/15 1315 AC 11/15 (Ultram) 1321 Aspirin 81 MG DAILY 11/15 0900 AC 11/15 (Aspirin) 0921 Budesonide/ 2 PUF BID 11/15 0900 AC 11/15 Formoterol Fumarate 0921 (Symbicort) Divalproex Sodium 750 MG BID 11/15 0900 AC 11/15 (Depakote) 0921 Montelukast Sodium 10 MG DAILY 11/15 0900 AC 11/15 (Singulair) 0921 Tiotropium Fletcher 1 PUF DAILY 11/15 0900 AC 11/15 (Spiriva) 0921 Topiramate 25 MG BID 11/15 0900 CAN (Topamax) Levothyroxine Sodium 0.05 MG DAILY AC 11/15 0700 AC 11/15 (Synthroid) 0602 Gabapentin 300 MG Q6 11/15 0600 AC 11/15 (Neurontin) 1703 Laboratory Tests 11/15/17 1400: APTT Cancelled 11/15/17 0630: Anion Gap 14, Estimated GFR > 60, BUN/Creatinine Ratio 14.4, Hemoglobin A1c Pending, Triglycerides 263 H, Cholesterol 150, LDL Cholesterol, Calc 72, HDL Cholesterol 26 L, Cholesterol/HDL Ratio 6 H, CBC w Diff NO MAN DIFF REQ, RBC 4.13 L, MCV 97.3, MCH 33.1 H, MCHC 34.0, RDW 13.8, MPV 8.9, Gran % 64.4, Lymphocytes % 25.4, Monocytes % 6.4, Eosinophils % 3.4, Basophils % 0.4, Absolute Granulocytes 10.8 H, Absolute Lymphocytes 4.3 H, Absolute Monocytes 1.1 H, Absolute Eosinophils 0.6, Absolute Basophils 0.1, Valproic Acid 19.2 L 11/14/172049: Anion Gap 15, Estimated GFR > 60, BUN/Creatinine Ratio 17.5, Glucose 144 H, Calcium 9.5, Total Bilirubin 0.4, AST 26, ALT 45, Alkaline Phosphatase 150 H, Troponin I < 0.01, Total Protein 7.3, Albumin 4.4, Globulin 2.9, Albumin/ Globulin Ratio 1.5, PT 11.0, INR 1.01, APTT 28, CBC w Diff MAN DIFF ORDERED, RBC 4.39, MCV 97.2, MCH 32.8 H, MCHC 33.8, RDW 13.3, MPV 8.4, Gran % 75.8 H, Lymphocytes % 20.9, Monocytes % 1.3 L, Eosinophils % 2.0, Basophils % 0, Absolute Granulocytes 16.2 H, Segmented Neutrophils 70, Band Neutrophils 3, Absolute Lymphocytes 4.5 H, Lymphocytes 20 L, Monocytes 4, Absolute Monocytes 0.3, Eosinophils 2, Absolute Eosinophils 0.4, Basophils 1, Absolute Basophils 0, Platelet Estimate ADEQUATE, Normochromic RBCs VERIFIED Microbiology 11/15 06 LOWER RESP: Respiratory Culture - COLB 11/15 599 LOWER RESP: Gram Stain - COLB 11/15 254 BLOOD: Blood Culture - RECD 11/15 254 BLOOD: Blood Culture - RECD 11/15 014 URINE ROUT: Urine Culture - ORD Comments: 11/14/2017 8:47:30 PM patient is not in the room, I suspect she is in CAT scan. Departure Departure Condition: Stable Referrals: Patient Has No Primary Care Dr (PCP/Family) Departure Forms: Customer Survey General Discharge Information
--- NOTE | 2017-11-14 21:03 | CT SCAN REPORT ---
EXAMINATION: CT HEAD WITHOUT CONTRAST CLINICAL INFORMATION: Sudden aphasia. Right-sided weakness. Assess for stroke. COMPARISON: MRI scan of the brain [facility] 10/29/2017. CT scan of the head [facility] 10/30/2017. TECHNIQUE: Contiguous axial imaging was performed from the skull base to vertex without intravenous administration of contrast. DLP: 592.18 mGy-cm FINDINGS: There is no evidence of acute intracranial hemorrhage or territorial infarction. No abnormal mass effect or midline shift is seen. Moise to white matter differentiation is well preserved. No extra-axial fluid collections are identified. The ventricles are normal in size. There is no abnormal attenuation within the brain parenchyma. The osseous structures and soft tissues are normal. The visualized mastoid air cells are well-aerated. There is now some mucoperiosteal thickening in the left greater than right sphenoid sinuses and in the anterior ethmoid air cells. IMPRESSION: 1. There are no acute bleeds or territorial infarcts. No masses are demonstrated. 2. This critical result was discussed with Shellie Cohen by telephone on 11/14/2017 at 8:59 PM and it was ascertained that the content and urgency of the report was understood at the time of direct communication.
[2017-11-14 21:07] LABS: ABSOLUTE BASOPHIL COUNT 0 /CUMM (0.0-0.2); ABSOLUTE EOSINOPHIL COUNT 0.4 /CUMM (0.0-0.7); ABSOLUTE GRANULOCYTE CT 16.2 /CUMM (1.4-6.5); ABSOLUTE LYMPH COUNT 4.5 /CUMM (1.2-3.4); ABSOLUTE MONOCYTE COUNT 0.3 /CUMM (0.10-0.60); BASOPHIL % 0 % (0.0-2.0); HEMATOCRIT 42.7 % (37-47); MEAN CORPUSCULAR HGB 32.8 PG (27.0-31.0); MEAN CORPUSCULAR HGB CONC 33.8 G/DL (33.0-37.0); MEAN CORPUSCULAR VOLUME 97.2 FL (81.0-99.0); MEAN PLATELET VOLUME 8.4 FL (7.4-10.4); PLATELET COUNT 369 /CUMM (130-400); RBC DISTRIBUTION WIDTH 13.3 % (11.5-14.5); RED BLOOD CELL CT 4.39 /CUMM (4.20-5.40); WHITE BLOOD CELL COUNT 21.4 /CUMM (4.8-10.8)
[2017-11-14 21:14] LABS: GRANULOCYTE % 75.8 % (42.2-75.2)
[2017-11-14 21:17] LABS: PTT 28 SEC (25-37)
--- NOTE | 2017-11-14 21:47 | CT SCAN REPORT ---
EXAMINATION: CT ANGIOGRAM OF THE HEAD CT ANGIOGRAM OF THE NECK CLINICAL INFORMATION: Right-sided weakness and slurred speech. Assess for ischemic stroke. COMPARISON: CT scan of the head obtained earlier 11/14/2017. MRI scan of the brain [facility] 10/29/2017. CTA of the head and neck [facility] 10/29/2017. TECHNIQUE: Test bolus series followed by intravenous administration 95 mL of Optiray 320. Helical imaging was performed in the axial plane from the mediastinum to the skull vertex. The degree of stenosis is based off NASCET criteria. The data was processed at the learning technologist workstation for generation of MIP images. Three-dimensional volume rendered reformatted images were also generated at an offline 3-D workstation. DLP: 446.88 mGy-cm FINDINGS: CT Head: There is no evidence of acute intracranial hemorrhage or territorial infarction. No abnormal mass-effect or midline shift is seen. Moise to white matter differentiation is well preserved. No extra-axial fluid collections are identified. The ventricles are normal in size. There is no abnormal attenuation or enhancement in the brain parenchyma. The osseous structures and soft tissues are normal. There is mucoperiosteal thickening in the bilateral sphenoid and anterior ethmoid air cells. CTA Neck: There is a classic configuration of the arch of the aorta. The great vessels of the neck are widely patent. The subclavian arteries appear normal bilaterally. The common carotid arteries have normal caliber. The study redemonstrates medialization of the carotid bifurcations particularly on the left, but the vessels are patent and there is no stenosis. The cervical internal carotid arteries are patent bilaterally. There are atheromatous calcifications. The origins of both vertebral arteries are well seen and appear normal. Both vertebral arteries are widely patent and demonstrate good opacification throughout their cervical course. The vertebral arteries are codominant. Nonvascular: The visualized lung fam are well-aerated. The thyroid gland is normal. The submandibular and parotid glands appear normal. There are mildly prominent multilevel lymph nodes in the neck, similar compared to the prior study. CTA Head: In the anterior circulation, the distal internal carotid arteries within the neck appear normal. The intracranial internal carotid arteries and their bifurcations appear normal. The middle and anterior cerebral arteries bilaterally demonstrate normal caliber with no evidence of focal stenosis, aneurysm or vascular malformation. There is normal arborization of the middle cerebral artery branches. The anterior communicating artery is normal. In the posterior circulation, the vertebral arteries are codominant. The vertebral arteries intradurally have uniform caliber. The basilar artery appears normal. The posterior cerebral arteries have normal caliber. The venous sinuses opacify normally. IMPRESSION: 1. There are no acute intracranial findings. No bleeds or territorial infarcts are demonstrated. There is no abnormal enhancement and no masses are seen. 2. CTA of the head and neck is normal. No focal stenoses, vascular malformations or aneurysms are demonstrated.
--- NOTE | 2017-11-14 23:15 | History & Physical ---
Ilene Rios 11/14/17 9814: General Information and HPI MD Statement: I have seen and personally examined EDDIE BANERJEE and documented this H&P. The patient is a 47 year old F who presented with a patient stated chief complaint of [Seizure/Stroke]. Source of Information: patient, old records Exam Limitations: no limitations History of Present Illness: Ms. Banerjee is 47yo F w/ PMH of Hypothyroidism, seizure, asthma, bilateral foot drop, urinary incontinence, PTSD, insomnia, CVA in May 2016., presented for a sudden onset of weakness of her RUE and RLE, and slurred speech [facility], that was found out by her son, who brought her in. She was recently admitted in [place] and discharged to [facility] for PT and then discharged back to home this noted about 3 days ago. Patient was at baseline wheelchair bound, was previous seizure history, last active seizure activity likely tonic-clonic back in 5 years ago, with LLE weakness/spasm, which was self resolving within 30 minutes. Patient had no seizure activity in the past 5 years, and was diagnosed with spinal stenosis, with bilateral footdrop, and was hospitalized in [facility] in 2017 with left arm weakness, which underwent a week course of prednisone taper, and was discharged. Patient denies any use of prednisone at this moment. Patient had a stroke in May 2016 while visiting friends in [place] and was subsequently hospitalized for 6 days. She denied residual deficit after the stroke. During our clinical interaction, patient endorsed sore throat, however denied fever/lightheadedness/diaphoresis/night sweat/weight change/SOB/Chest Pain/ Palpitation/Abdominal pain/bowel movement or urinary abnormality, or other skin/ musculoskeletal/neurological/mood disorders, or dietary/appetite change. -Smoking: active smoker of 6-7 cigs/day -Alcohol: never -Rec Drugs: never Allergies/Medications Allergies: Coded Allergies: cephalexin (From KEFLEX) (Severe, ANAPHYLAXIS 07/19/16) ciprofloxacin (Severe, ANAPHYLAXIS 07/19/16) egg (Severe, ANAPHYLAXIS 07/19/16) Penicillins (ANAPHYLAXIS 07/19/16) Past History Travel History Traveled to [place] past 21 day No Medical History Neurological: seizure Cardiovascular: NONE Respiratory: asthma Gastrointestinal: NONE Hepatic: NONE Renal: NONE Musculoskeletal: spinal stenosis, foot drop Psychiatric: insomnia, PTSD Endocrine: hyperthyroidism Blood Disorders: NONE Cancer(s): NONE 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 Exam & Diagnostic Data Last 24 Hrs of Vital Signs/I&O Vital Signs Date Time Temp Pulse Resp B/P B/P Pulse O2 O2 Flow FiO2 Mean Ox Delivery Rate 11/15 0007 91 18 146/83 98 Room Air Room Air 11/147 95 Room Air Room Air 11/14 2034 98.0 88 22 151/94 97 Room Air Intake & Output 11/15 0800 11/15 0000 11/14 1600 Intake Total Output Total Balance Patient 113.398 kg Weight Weight Reported by Patient Measurement Method Physical Exam General Appearance Alert, Cooperative, No Acute Distress, orient to self, not to place/time/setting/president Skin No Rashes, No Breakdown, No Significant Lesion Skin Temp/Moisture Exam: Warm/Dry Sepsis Skin Exam (color): Normal for Ethnicity HEENT Atraumatic, PERRLA Neck Supple Cardiovascular Regular Rate, Normal S1, Normal S2 Lungs Clear to Auscultation, Normal Air Movement Abdomen Normal Bowel Sounds, Soft, No Tenderness Neurological slurred speech RUE/RLE flaccid decreased sensation on right sides of body reflex brisk bilaterally extremities Extremities No Cyanosis, No Edema, Normal Pulses, No Tenderness/Swelling Last 24 Hrs of Labs/John: Laboratory Tests 11/14/172049: Anion Gap 15, Estimated GFR > 60, BUN/Creatinine Ratio 17.5, Glucose 144 H, Calcium 9.5, Total Bilirubin 0.4, AST 26, ALT 45, Alkaline Phosphatase 150 H, Troponin I < 0.01, Total Protein 7.3, Albumin 4.4, Globulin 2.9, Albumin/ Globulin Ratio 1.5, PT 11.0, INR 1.01, APTT 28, CBC w Diff MAN DIFF ORDERED, RBC 4.39, MCV 97.2, MCH 32.8 H, MCHC 33.8, RDW 13.3, MPV 8.4, Gran % 75.8 H, Lymphocytes % 20.9, Monocytes % 1.3 L, Eosinophils % 2.0, Basophils % 0, Absolute Granulocytes 16.2 H, Segmented Neutrophils 70, Band Neutrophils 3, Absolute Lymphocytes 4.5 H, Lymphocytes 20 L, Monocytes 4, Absolute Monocytes 0.3, Eosinophils 2, Absolute Eosinophils 0.4, Basophils 1, Absolute Basophils 0, Platelet Estimate ADEQUATE, Normochromic RBCs VERIFIED Assessment/Plan Assessment: On admission, Vitals: stable afebrile, w/ BP 151/94, 97% under RA -CBC: Leukocytosis 21.4 -BMP: unremarkable except elevated AlkPhos 150 -CTA head/neck: no acute intracranial findings. -EKG: NSR w/o significant ST-T abnormalities. -Interventions in ER: Zofran x 1 Problem list & Assessment: #sudden onset RUE/RLE weakness & slurred speech w/o clear etiology, seizure vs. malingering #sore throat w/o positive PE findings #Leukocytosis w/o clear etiology/fever/positive infectious signs, denied steroid uses/no steroid on med list #PMH of Hypothyroidism, seizure, asthma, bilateral foot drop, urinary incontinence, PTSD, insomnia, CVA w/o residual weakness Hospital Course: - Admit to Telemetry - Neurocheck q2h - Novolog SS/AccuChek - Patient has no acute infarction found on head/neck CTA, would not be a candidate for TPA. - Pending neuro consult in the AM. - continue all home meds, except holding cymbalta. - PT/OT Eval DVT prophylaxis ALPS Heart Healthy Diet, passed the bedside swallow Full Code As Ranked By This Provider Problem List: 1. PTSD (post-traumatic stress disorder) 2. Foot drop 3. History of CVA (cerebrovascular accident) without residual deficits 4. Seizure disorder 5. Asthma Core Measures/Misc (03/16) Acute Coronary Syndrome ACS Diagnosis: No Congestive Heart Failure Congestive Heart Failure Diagnosis No Cerebrovascular Accident CVA/TIA Diagnosis: No VTE (View Protocol) VTE Risk Factors Age>40 No Mechanical VTE Prophylaxis d/t N/A MechProphylax Ordered No VTE Pharm Prophylaxis d/t NA PharmProphylax ordered Sepsis (View protocol) Sepsis Present: No Ney Campbell MD 11/14/17 7449: General Information and HPI Allergies/Medications Home Med list Albuterol Sulfate (Proair Hfa) 90 MCG HFA.AER.AD 2 PUF INH PRN ASTHMA ( Reported) Aspirin (Lo-Dose Aspirin EC) 81 MG TABLET.DR 1 TAB PO DAILY HEART/BLOOD ( Reported) Atorvastatin Calcium 40 MG TABLET 1 TAB PO DAILY LIPID (Reported) Cyclosporine (Restasis) 0.05 % DROPERETTE 1 GTT OPH BID BOTH EYES (Reported) Divalproex Sodium 250 MG TABLET.DR 750 MG PO BID SEIZURES (Reported) Duloxetine HCl 30 MG CAPSULE.DR 1 CAP PO DAILY DEPRESSION (Reported) Fluticasone/Salmeterol (Advair 250-50 Diskus) 250 MCG-50 MCG/DOSE BLST.W.DEV 1 PUF INH BID ASTHMA (Reported) Gabapentin 300 MG CAPSULE 1 CAP PO Q6 PAIN (Reported) Levothyroxine Sodium 50 MCG TABLET 1 TAB PO DAILY AC THYROID (Reported) Meclizine HCl 12.5 MG TABLET 1 TAB PO PRN VERTIGO (Reported) Metformin HCl (Glucophage) 1,000 MG TABLET 1 TAB PO BID DM (Reported) Montelukast Sodium 10 MG TABLET 1 TAB PO DAILY SUPPLEMENT (Reported) Prazosin HCl 1 MG CAPSULE 1 CAP PO QPM PTSD (Reported) Quetiapine Fumarate 50 MG TABLET 1 TAB PO QPM INSOMNIA (Reported) Tiotropium [place] (Spiriva) 18 MCG CAP.W.DEV 1 CAP INH DAILY ASTHMA ( Reported) Topiramate (Topamax) 50 MG TABLET 1 TAB PO QHS SEIZURE (Reported) Resident Review Statement Resident Statement: examined this patient, discussed with news intern, agreed with news intern Other Findings: This is a 47-year-old female with past medical history significant for seizure disorder, asthma, foot drop, urinary incontinence, PTSD, insomnia, CVA, hypothyroidism, spinal stenosis, who comes in for chief complaint of slurred speech and unilateral right-sided weakness. Patient is a very poor historian so much of the history is obtained by son at bedside. Apparently when he came home today after work around 6 PM she was completely normal but some time between 6 and 6:30 PM he noted that she suddenly couldn't keep her head up and started listing towards one side. Her eyes seemed unfocused and she seemed to have a twitch in her right arm. He also noted that her speech was significantly slurred and different from baseline. Per patient she had a similar presentation for left-sided hemiparesis for which she went to rehabilitation for 3 months. She says she takes her antiseizure meds regularly. She is wheelchair-bound and currently lives at a [facility] at this time. Of note she was discharged from [facility] about 3 days ago. She was seen in the previous hospital at 3 months ago for left-sided hemiparesis. Prior to that she was seen at [facility] in June 2016 for weakness in left upper extremity and left lower extremity. She did have noted spinal stenosis but not in an area congruent with her deficits. She has been to multiple hospitals around the area and had over 10 CAT scans for evaluation of CVA. She is a current smoker but denies alcohol or drugs. Physical exam as above. Assessment: 47-year-old female with past medical history significant for seizure disorder, asthma, foot drop, urinary incontinence, PTSD, insomnia, CVA, hypothyroidism, spinal stenosis, who comes in for chief complaint of slurred speech and unilateral right-sided weakness. Notably, she has had multiple MRIs and CTs of head, carotid ultrasound and echocardiograms without evidence of intracranial pathology. Differential diagnosis in this patient includes CVA, seizure with Will's paralysis, or malingering. Plan: Weakness and slurring of speech: * Neuro check * Appreciated neuro consult * U tox * Lipid panel * Will avoid redundant work up. No need for echo, carotid US or MRI at this time. * Continue home Depakote 750 mg by mouth daily * Check Depakote level in a.m. * Continue Topamax 50 mg at bedtime * Holding Cymbalta * Continue gabapentin 300 mg every 6 * Aspirin * Statin * PT eval Leukocytosis: Pt has wbc 21 today. afebrile and only complaint is sore throat. * strep swab * blood cultures * urine culture * sputum culture * Monitor CBC * Hold off abx at this time Hypothyroisim: * Check TFT * Continue Synthroid 50 g Other medications * Hold metformin * Hold quetiapine * Continue montelukast * Continue prazosin FC HHD CHEM PPX Harjeet Vazquez 11/15/17 0239: Attending MD Review Statement Attending Statement Attending MD Statement: examined this patient, discuss w/resident/PA/SHRIMP PICKER, agreed w/resident/PA/SHRIMP PICKER, reviewed EMR data (avail), reviewed images, amended to note Attending Assessment/Plan: CC: Right upper extremity and lower extremity weakness, slurred speech PMH: Hypothyroidism, seizure, asthma, bilateral foot drop, urinary incontinence, PTSD, insomnia, CVA in May 2016. DM, bipolar disorder, dysphagia Patient was brought in ER by her son for slurred speech. According to son and the patient this happened around 6 PM, associated with weakness and right upper extremity and lower extremity so he came to ER. Patient was in [facility] from 11/06/2017 to 11/11/2017, after TIA and left-sided weakness for which she was initially admitted at [facility]. Patient is poor historian. Complete ROS unremarkable. Vitals: Temperature 98.0, pulse 88, RR 22, blood pressure 151/94, saturating 97% on room air On exam: A not oriented, cooperative, no acute distress, neck supple, JVD normal , no lymphadenopathy, mucosa moist, no dependent edema, no obvious skin rashes or inflammation CVS: S1-S2, RRR. RS: Clear to auscultate bilaterally. Abdomen: Soft, NT, ND, bowel sounds present. Cranial nerves intact, questionable decreased sensation on the right half of the body, right upper extremity and lower extremity weakness, subjective, poor effort strength 1/5, normal strength in left upper and lower extremity. Cerebellar signs normal on left side, cannot perform on the right side, speech normal CT head: 1. There are no acute bleeds or territorial infarcts. No masses are demonstrated. CTA head and neck: 1. There are no acute intracranial findings. No bleeds or territorial infarcts are demonstrated. There is no abnormal enhancement and no masses are seen. 2. CTA of the head and neck is normal. No focal stenoses, vascular malformations or aneurysms are demonstrated. Assessment and plan 47-year-old female with multiple comorbidities as mentioned above presented in ER for slurred speech, right upper extremity and lower extremity weakness. On examination speech and cranial nerves are intact, decreased sensation on right side of the body and poor efforts for movements in the right side, strength 1/5 in the right upper extremity and 0/5 on the right lower extremity but when assessed strength while distracting her strength appears normal, tone and reflexes normal. CT head is unremarkable for stroke. CTA head and neck does not show any thrombotic or embolic phenomena. According to radiologist ration had several CTAs for head and neck in last 1 year. Patient may have had seizure episode followed by Will's palsy , she has history of seizure disorder. Given that her neurological examination is ambiguous, this is less likely stroke or TIA. This could be malingering. We will get neurology opinion + Right-sided upper extremity and lower extremity weakness : Less likely CVA, possible Will's palsy + Leukocytosis of unclear etiology no obvious source of infection identified + History of Hypothyroidism, seizure, asthma, bilateral foot drop, urinary incontinence, PTSD, insomnia, CVA in May 2016. DM, bipolar disorder, dysphagia - Admit to telemetry - Continuous telemetry monitoring - Serial neuro checks - Neurologic consult - MRI of brain only if suggested by neurologist - U tox - OT PT evaluation - Continue aspirin and statin - Continue rest of her home medications, change metformin to sliding scale insulin - DVT prophylaxis
[2017-11-15 01:30] VITALS: BP 134/80
--- NOTE | 2017-11-15 02:41 | Admission Certification ---
Admission Certification Certification Statement - As attending physician, I certify that at the time of - admission, based on clinical presentation, severity of - symptoms, need for further diagnostic testing and - therapeutic interventions, and risk of adverse outcomes - without in-hospital treatment, in my clinical assessment, - this patient requires an acute hospital stay for a minimum - of two nights or longer. I have also considered psychsocial - factors such as support system, advanced age, financial - issues, cognitive issues, and failed out-patient treatments, - past re-admission history, safety of patient, and lack of - compliance as applicable. Specific rationale supporting this admission is: Right-sided weakness
[2017-11-15] MEDS ORDERED: DULOXETINE HCL30 MG PO (02:56)
[2017-11-15] MEDS ORDERED: ATORVASTATIN CA40 M1 PO (02:56)
[2017-11-15] MEDS ORDERED: GABAPENTIN300 M2 PO (03:05)
[2017-11-15] MEDS ORDERED: CYMBALTA30 M1 PO (03:06)
[2017-11-15] MEDS ORDERED: GLUCOPHAGE1000 M1 PO (03:07)
--- NOTE | 2017-11-15 03:55 | PN- Housestaff ---
See Addendum Subjective Follow-up For: Possible CVA Tele-Events Since Last Visit: NSR rate 90s Subjective: Saw pt at bedside this AM. She was asleep but rousable. No acute overnight events. Notably, when she was just waking up she had full use of her right upper extremity and spontaneous movement of her RLE. However, when I asked her to move the extremity she denied being able to do so. Review of Systems Constitutional: Reports: weakness. EENTM: Reports: no symptoms. Cardiovascular: Denies: chest pain, peripheral edema. Respiratory: Reports: cough. Gastrointestinal: Denies: abdominal pain. Genitourinary: Reports: no symptoms. Musculoskeletal: Reports: no symptoms. Objective Last 24 Hrs of Vital Signs/I&O Vital Signs Date Time Temp Pulse Resp B/P B/P Pulse O2 O2 Flow FiO2 Mean Ox Delivery Rate 11/15 625 98.4 85 20 128/72 95 Room Air 11/15 0130 99.4 96 20 134/80 94 Room Air 11/15 0007 91 18 146/83 98 Room Air Room Air 11/14 2327 95 Room Air Room Air 11/14 2035 98.0 88 22 151/94 97 Room Air Intake & Output 11/15 0800 11/15 0000 11/14 1600 Intake Total 240 Output Total Balance 240 Intake, Oral 240 Patient 105.233 kg 113.398 kg Weight Weight Bed scale Reported by Patient Measurement Method Physical Exam General Appearance: Alert, Oriented X3, Cooperative, No Acute Distress Skin: No Significant Lesion HEENT: Atraumatic, PERRLA, EOMI Neck: Supple Cardiovascular: Regular Rate, Normal S1, Normal S2 Lungs: Normal Air Movement Abdomen: Soft, No Tenderness Extremities: No Edema Current Medications: Current Medications Sig/Jose Guadalupe Start time Last Medication Dose Route Stop Time Status Admin Aspirin 81 MG DAILY 11/15 09 AC PO Atorvastatin Calcium 40 MG 1700 11/15 1700 AC PO Budesonide/ 2 PUF BID 11/15 899 AC Formoterol Fumarate INH Divalproex Sodium 750 MG BID 11/15 09 AC PO Gabapentin 300 MG Q6 11/15 0600 AC 11/15 PO 0602 Levothyroxine Sodium 0.05 MG DAILY AC 11/15 0700 AC 11/15 PO 0602 Montelukast Sodium 10 MG DAILY 11/15 899 AC PO Ondansetron HCl 0 .STK-MED ONE 11/15 2131 DC .ROUTE Prazosin HCl 1 MG QPM 11/15 2099 AC PO Quetiapine Fumarate 25 MG QPM 11/15 2099 CAN PO Tiotropium [place] 1 PUF DAILY 11/15 09 AC INH Topiramate 50 MG AT BEDTIME 11/15 2099 AC PO Topiramate 25 MG BID 11/15 09 CAN PO Last 24 Hrs of Lab/John Results Last 24 Hrs of Labs/Mics: Laboratory Tests 11/15/1730: Sodium Pending, Potassium Pending, Chloride Pending, Carbon Dioxide Pending, Anion Gap Pending, BUN Pending, Creatinine Pending, BUN/Creatinine Ratio Pending , Hemoglobin A1c Pending, Triglycerides Pending, Cholesterol Pending, LDL Cholesterol, Calc Pending, HDL Cholesterol Pending, Cholesterol/HDL Ratio Pending, CBC w Diff Pending, WBC Pending, RBC Pending, Hgb Pending, Hct Pending, MCV Pending, MCH Pending, MCHC Pending, RDW Pending, Plt Count Pending, MPV Pending, Valproic Acid Pending 11/14/172049: Anion Gap 15, Estimated GFR > 60, BUN/Creatinine Ratio 17.5, Glucose 144 H, Calcium 9.5, Total Bilirubin 0.4, AST 26, ALT 45, Alkaline Phosphatase 150 H, Troponin I < 0.01, Total Protein 7.3, Albumin 4.4, Globulin 2.9, Albumin/ Globulin Ratio 1.5, PT 11.0, INR 1.01, APTT 28, CBC w Diff MAN DIFF ORDERED, RBC 4.39, MCV 97.2, MCH 32.8 H, MCHC 33.8, RDW 13.3, MPV 8.4, Gran % 75.8 H, Lymphocytes % 20.9, Monocytes % 1.3 L, Eosinophils % 2.0, Basophils % 0, Absolute Granulocytes 16.2 H, Segmented Neutrophils 70, Band Neutrophils 3, Absolute Lymphocytes 4.5 H, Lymphocytes 20 L, Monocytes 4, Absolute Monocytes 0.3, Eosinophils 2, Absolute Eosinophils 0.4, Basophils 1, Absolute Basophils 0, Platelet Estimate ADEQUATE, Normochromic RBCs VERIFIED Microbiology 11/15 06 LOWER RESP: Respiratory Culture - COLB 11/15 599 LOWER RESP: Gram Stain - COLB 11/15 254 BLOOD: Blood Culture - RECD 11/15 0255 BLOOD: Blood Culture - RECD 11/15 0145 URINE ROUT: Urine Culture - COLB Assessment/Plan Assessment: Assessment: 47-year-old female with past medical history significant for seizure disorder, asthma, foot drop, urinary incontinence, PTSD, insomnia, CVA, hypothyroidism, spinal stenosis, who comes in for chief complaint of slurred speech and unilateral right-sided weakness. Notably, she has had multiple MRIs and CTs of head, carotid ultrasound and echocardiograms without evidence of intracranial pathology. Differential diagnosis in this patient includes CVA, seizure with Will's paralysis, or malingering. Plan: Weakness and slurring of speech: * Neuro checks * Appreciate neuro consult * U tox * Lipid panel * Will avoid redundant work up. No need for echo, carotid US or MRI at this time. * Continue home Depakote 750 mg by mouth daily * Check Depakote level in a.m. * Continue Topamax 50 mg at bedtime * Holding Cymbalta * Continue gabapentin 300 mg every 6 * Aspirin * Statin * PT eval Leukocytosis: Pt has wbc 21, repeat CBC pending. Afebrile and only complaint is sore throat. * strep swab * blood cultures * urine culture * sputum culture * Monitor CBC * Hold off abx at this time Hypothyroisim: * Check TFT * Continue Synthroid 50 g Other medications * Hold metformin * Hold quetiapine * Continue montelukast * Continue prazosin FC HHD CHEM PPX Problem List: 1. History of CVA (cerebrovascular accident) without residual deficits 2. CVA (cerebral vascular accident) Pain Ratin Pain Location: none Pain Goal: Remain pain free Pain Plan: none Tomorrow's Labs & Rationales: cbc
[2017-11-15 06:26] VITALS: BP 128/72
[2017-11-15 08:51] LABS: ABSOLUTE BASOPHIL COUNT 0.1 /CUMM (0.0-0.2); ABSOLUTE EOSINOPHIL COUNT 0.6 /CUMM (0.0-0.7); ABSOLUTE GRANULOCYTE CT 10.8 /CUMM (1.4-6.5); ABSOLUTE LYMPH COUNT 4.3 /CUMM (1.2-3.4); ABSOLUTE MONOCYTE COUNT 1.1 /CUMM (0.10-0.60); BASOPHIL % 0.4 % (0.0-2.0); EOSINOPHIL % 3.4 % (0-5); GRANULOCYTE % 64.4 % (42.2-75.2); HEMATOCRIT 40.2 % (37-47); MEAN CORPUSCULAR HGB 33.1 PG (27.0-31.0); MEAN CORPUSCULAR VOLUME 97.3 FL (81.0-99.0); MEAN PLATELET VOLUME 8.9 FL (7.4-10.4); PLATELET COUNT 331 /CUMM (130-400); RBC DISTRIBUTION WIDTH 13.8 % (11.5-14.5); RED BLOOD CELL CT 4.13 /CUMM (4.20-5.40)
[2017-11-15 11:24] LABS: WHITE BLOOD CELL COUNT 16.8 /CUMM (4.8-10.8)
--- NOTE | 2017-11-15 12:41 | MRI REPORT ---
EXAMINATION: MR BRAIN WITHOUT CONTRAST CLINICAL INFORMATION: Slurred speech. Assess for stroke. COMPARISON: CT head and CTA of the head and neck 11/14/2017. TECHNIQUE: MRI of the brain without contrast was obtained using routine sequences. FINDINGS: No diffusion abnormalities are identified to suggest an acute or subacute infarct. No mass effect or midline shift is seen. The ventricles are normal in size. Brain parenchymal signal is unremarkable. No extra-axial fluid collections are seen. The brainstem and cerebellum are normal. No pathologic magnetic susceptibility artifact is identified on the gradient refocused acquisition. The craniovertebral junction, marrow signal, and midline structures are normal. The major intracranial flow-voids at the level of the [place] are preserved. The dural venous sinus flow-voids are maintained. The mastoid air cells are well-aerated. There is extensive mucoperiosteal thickening in the left sphenoid, anterior right ethmoid and right frontal sinuses. Milder changes are seen in the right sphenoid and posterior ethmoid sinuses. IMPRESSION: 1. There are no acute bleeds or infarcts. No masses are demonstrated. 2. There are paranasal sinus changes as described above.
[2017-11-15 14:26] VITALS: BP 110/60
--- NOTE | 2017-11-15 17:30 | Cons- Neurology ---
General Information and HPI Consulting Request Date of Consult: 11/15/17 Requested By: Harjeet Vazquez MD History of Present Illness: 47-year-old female admitted yesterday with history of weakness of right upper and right lower extremity and slurred speech Symptoms have not changed since that time She has noted mild sensory deficit on that side There was no seizure or head trauma or loss of consciousness 5 years ago she had a similar problem involving left upper extremity and left lower extremity; at that time she spent a few months in the rehabilitation facility Allergies/Medications Allergies: Coded Allergies: cephalexin (From KEFLEX) (Severe, ANAPHYLAXIS 07/19/16) ciprofloxacin (Severe, ANAPHYLAXIS 07/19/16) egg (Severe, ANAPHYLAXIS 07/19/16) Penicillins (ANAPHYLAXIS 07/19/16) Home Med List: Albuterol Sulfate (Proair Hfa) 90 MCG HFA.AER.AD 2 PUF INH PRN ASTHMA ( Reported) Aspirin (Lo-Dose Aspirin EC) 81 MG TABLET.DR 1 TAB PO DAILY HEART/BLOOD ( Reported) Atorvastatin Calcium 40 MG TABLET 1 TAB PO DAILY LIPID (Reported) Cyclosporine (Restasis) 0.05 % DROPERETTE 1 GTT OPH BID BOTH EYES (Reported) Divalproex Sodium 250 MG TABLET.DR 750 MG PO BID SEIZURES (Reported) Duloxetine HCl 30 MG CAPSULE.DR 1 CAP PO DAILY DEPRESSION (Reported) Fluticasone/Salmeterol (Advair 250-50 Diskus) 250 MCG-50 MCG/DOSE BLST.W.DEV 1 PUF INH BID ASTHMA (Reported) Gabapentin 300 MG CAPSULE 1 CAP PO Q6 PAIN (Reported) Levothyroxine Sodium 50 MCG TABLET 1 TAB PO DAILY AC THYROID (Reported) Meclizine HCl 12.5 MG TABLET 1 TAB PO PRN VERTIGO (Reported) Metformin HCl (Glucophage) 1,000 MG TABLET 1 TAB PO BID DM (Reported) Montelukast Sodium 10 MG TABLET 1 TAB PO DAILY SUPPLEMENT (Reported) Prazosin HCl 1 MG CAPSULE 1 CAP PO QPM PTSD (Reported) Quetiapine Fumarate 50 MG TABLET 1 TAB PO QPM INSOMNIA (Reported) Tiotropium [place] (Spiriva) 18 MCG CAP.W.DEV 1 CAP INH DAILY ASTHMA ( Reported) Topiramate (Topamax) 50 MG TABLET 1 TAB PO QHS SEIZURE (Reported) Current Medications: Current Medications Sig/Jose Guadalupe Start time Last Medication Dose Route Stop Time Status Admin Acetaminophen 650 MG Q6P PRN 11/15 1315 AC PO Aspirin 81 MG DAILY 11/15 0900 AC 11/15 PO 0921 Atorvastatin Calcium 40 MG 1700 11/15 1700 AC 11/15 PO 1703 Budesonide/ 2 PUF BID 11/15 0900 AC 11/15 Formoterol Fumarate INH 0921 Divalproex Sodium 750 MG BID 11/15 0900 AC 11/15 PO 0921 Gabapentin 300 MG Q6 11/15 0600 AC 11/15 PO 1703 Levothyroxine Sodium 0.05 MG DAILY AC 11/15 0700 AC 11/15 PO 0602 Lorazepam 0.5 MG ONCE ONE 11/15 1045 DC 11/15 IV 11/15 1046 1046 Montelukast Sodium 10 MG DAILY 11/15 09 AC 11/15 PO 0921 Ondansetron HCl 0 .STK-MED ONE 11/14 2132 DC .ROUTE Prazosin HCl 1 MG QPM 11/15 2100 AC PO Quetiapine Fumarate 25 MG QPM 11/15 2100 CAN PO Tiotropium [place] 1 PUF DAILY 11/15 0900 AC 11/15 INH 0921 Topiramate 50 MG AT BEDTIME 11/15 2100 AC PO Topiramate 25 MG BID 11/15 0900 CAN PO Tramadol HCl 50 MG Q6P PRN 11/15 1315 AC 11/15 PO 1321 Review of Systems Review of Systems: No headache, diplopia, vertigo, difficulty swallowing, chest pain, breathing difficulty, nausea vomiting Patient states that she does not walk and is reliant on a wheelchair No recent fevers or significant swelling Other systems reviewed are negative Past History Travel History Traveled to [place] past 21 day No Medical History Blood Transfusion Hx: No Neurological: seizure EENT: NONE Cardiovascular: NONE Respiratory: asthma Gastrointestinal: NONE Hepatic: NONE Renal: NONE Musculoskeletal: spinal stenosis, foot drop Psychiatric: insomnia, PTSD Endocrine: hyperthyroidism Blood Disorders: NONE Cancer(s): NONE 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 Home Services at Home: None Primary Language: Italian Smoking Status: Current Everyday Smoker Exam & Diagnostic Data Vital Signs and I&O Vital Signs Date Time Temp Pulse Resp B/P B/P Pulse O2 O2 Flow FiO2 Mean Ox Delivery Rate 11/15 1426 97.9 86 20 110/60 95 11/15 0800 Room Air 11/15 0626 98.4 85 20 128/72 95 Room Air 11/15 0130 99.4 96 20 134/80 94 Room Air 11/15 0007 91 18 146/83 98 Room Air Room Air 11/14 2327 95 Room Air Room Air 11/14 2034 98.0 88 22 151/94 97 Room Air Intake & Output 11/15 1600 11/15 0800 11/15 0000 Intake Total 550.25 240 Output Total Balance 550.25 240 Intake, IV 10.25 Intake, Oral 540 240 Patient 232 lb 250 lb Weight Weight Bed scale Reported by Patient Measurement Method Patient states mother has seizure disorder Physical Exam: Alert and oriented Language functions fund of knowledge 10 span concentration recall intact Heart sounds normal no carotid bruits distal pulses intact Extra movements full pupils reactive fundi benign visual fam intact no facial weakness or facial sensory loss palate tongue and shoulders intact hearing mildly impaired bilaterally Normal tone in upper and lower extremities Good strength testing left upper and left lower extremity Does not move right upper extremity or right lower extremity Deep tendon reflexes 2+ bilateral upper and lower extremities Minimal sense of diminished light touch sensation right upper and right lower extremities Controlled fall right upper extremity Last 48 Hours of Lab Results: Laboratory Tests 11/15 11/15 1400 0630 Chemistry Sodium (137 - 145 mmol/L) 145 Potassium (3.5 - 5.1 mmol/L) 4.1 Chloride (98 - 107 mmol/L) 108 H Carbon Dioxide (22 - 30 mmol/L) 23 Anion Gap (5 - 16) 14 BUN (7 - 17 mg/dL) 13 Creatinine (0.5 - 1.0 mg/dL) 0.9 Estimated GFR (>60 ml/min) > 60 BUN/Creatinine Ratio (7 - 25 %) 14.4 Hemoglobin A1c (4.2 - 5.8 %) Pending Triglycerides (<150 mg/dL) 263 H Cholesterol (<200 MG/DL) 150 LDL Cholesterol, Calc (65 - 129 mg/dL) 72 HDL Cholesterol (40 - 60 mg/dL) 26 L Cholesterol/HDL Ratio (0.00 - 4.23 %) 6 H Coagulation APTT Cancelled Hematology CBC w Diff NO MAN DIFF REQ WBC (4.8 - 10.8 /CUMM) 16.8 H RBC (4.20 - 5.40 /CUMM) 4.13 L Hgb (12.0 - 16.0 G/DL) 13.7 Hct (37 - 47 %) 40.2 MCV (81.0 - 99.0 FL) 97.3 MCH (27.0 - 31.0 PG) 33.1 H MCHC (33.0 - 37.0 G/DL) 34.0 RDW (11.5 - 14.5 %) 13.8 Plt Count (130 - 400 /CUMM) 331 MPV (7.4 - 10.4 FL) 8.9 Gran % (42.2 - 75.2 %) 64.4 Lymphocytes % (20.5 - 51.1 %) 25.4 Monocytes % (1.7 - 9.3 %) 6.4 Eosinophils % (0 - 5 %) 3.4 Basophils % (0.0 - 2.0 %) 0.4 Absolute Granulocytes (1.4 - 6.5 /CUMM) 10.8 H Absolute Lymphocytes (1.2 - 3.4 /CUMM) 4.3 H Absolute Monocytes (0.10 - 0.60 /CUMM) 1.1 H Absolute Eosinophils (0.0 - 0.7 /CUMM) 0.6 Absolute Basophils (0.0 - 0.2 /CUMM) 0.1 Toxicology Valproic Acid (50 - 120 ug/mL) 19.2 L 11/14 2049 Chemistry Sodium (137 - 145 mmol/L) 145 Potassium (3.5 - 5.1 mmol/L) 4.2 Chloride (98 - 107 mmol/L) 107 Carbon Dioxide (22 - 30 mmol/L) 23 Anion Gap (5 - 16) 15 BUN (7 - 17 mg/dL) 14 Creatinine (0.5 - 1.0 mg/dL) 0.8 Estimated GFR (>60 ml/min) > 60 BUN/Creatinine Ratio (7 - 25 %) 17.5 Glucose (65 - 99 mg/dL) 144 H Calcium (8.4 - 10.2 mg/dL) 9.5 Total Bilirubin (0.2 - 1.3 mg/dL) 0.4 AST (14 - 36 U/L) 26 ALT (9 - 52 U/L) 45 Alkaline Phosphatase (<127 U/L) 150 H Troponin I (< 0.11 ng/ml) < 0.01 Total Protein (6.3 - 8.2 g/dL) 7.3 Albumin (3.5 - 5.0 g/dL) 4.4 Globulin (1.9 - 4.2 gm/dL) 2.9 Albumin/Globulin Ratio (1.1 - 2.2 %) 1.5 Coagulation PT (9.4 - 12.5 SEC) 11.0 INR (0.90 - 1.19) 1.01 APTT (25 - 37 SEC) 28 Hematology CBC w Diff MAN DIFF ORDERED WBC (4.8 - 10.8 /CUMM) 21.4 H RBC (4.20 - 5.40 /CUMM) 4.39 Hgb (12.0 - 16.0 G/DL) 14.4 Hct (37 - 47 %) 42.7 MCV (81.0 - 99.0 FL) 97.2 MCH (27.0 - 31.0 PG) 32.8 H MCHC (33.0 - 37.0 G/DL) 33.8 RDW (11.5 - 14.5 %) 13.3 Plt Count (130 - 400 /CUMM) 369 MPV (7.4 - 10.4 FL) 8.4 Gran % (42.2 - 75.2 %) 75.8 H Lymphocytes % (20.5 - 51.1 %) 20.9 Monocytes % (1.7 - 9.3 %) 1.3 L Eosinophils % (0 - 5 %) 2.0 Basophils % (0.0 - 2.0 %) 0 Absolute Granulocytes (1.4 - 6.5 /CUMM) 16.2 H Segmented Neutrophils (42.2 - 75.2 %) 70 Band Neutrophils (0.0 - 5.0 %) 3 Absolute Lymphocytes (1.2 - 3.4 /CUMM) 4.5 H Lymphocytes (20.5 - 51.1 %) 20 L Monocytes (1.7 - 9.3 %) 4 Absolute Monocytes (0.10 - 0.60 /CUMM) 0.3 Eosinophils (0 - 5.0 %) 2 Absolute Eosinophils (0.0 - 0.7 /CUMM) 0.4 Basophils (0.0 - 2.0 %) 1 Absolute Basophils (0.0 - 0.2 /CUMM) 0 Platelet Estimate (ADEQUATE) ADEQUATE Normochromic RBCs VERIFIED Imaging/Other Studies: MRI brain IMPRESSION: 1. There are no acute bleeds or infarcts. No masses are demonstrated. 2. There are paranasal sinus changes as described above. CT/CTA IMPRESSION: 1. There are no acute intracranial findings. No bleeds or territorial infarcts are demonstrated. There is no abnormal enhancement and no masses are seen. 2. CTA of the head and neck is normal. No focal stenoses, vascular malformations or aneurysms are demonstrated. Assessment/Plan Assessment: Right upper and right lower extremity weakness Exam and testing both suggest conversion disorder Recommendations: Psychiatry assessment Patient may require again rehabilitation facility Consult Acknowledgment - Thank you for your consult request.
[2017-11-15 22:18] VITALS: BP 116/64
[2017-11-16 06:56] VITALS: BP 102/64
--- NOTE | 2017-11-16 09:05 | PN- Housestaff ---
See Addendum Subjective Follow-up For: possible CVA RUE weakness Tele-Events Since Last Visit: sinus rhythm, HR 70s-90s Subjective: not ambulating, afebrile, persistent rue/rle weakness Review of Systems Constitutional: Reports: see HPI. Objective Last 24 Hrs of Vital Signs/I&O Vital Signs Date Time Temp Pulse Resp B/P B/P Pulse O2 O2 Flow FiO2 Mean Ox Delivery Rate 11/16 0800 Room Air 11/16 0656 98.6 76 20 102/64 97 Room Air 11/16 0000 94 Room Air 11/15 2300 87 116/64 11/15 2218 98.6 91 20 116/64 96 Room Air 11/15 1426 97.9 86 20 110/60 95 Intake & Output 11/16 1600 11/16 0800 11/16 0000 Intake Total 100 660 Output Total 0 300 Balance 100 360 Intake, IV 0 Intake, Oral 100 660 Number 0 0 Bowel Movements Output, Urine 0 300 Patient 106.141 kg Weight Weight Bed scale Measurement Method Physical Exam General Appearance: Alert, Oriented X3, Cooperative, No Acute Distress Cardiovascular: Regular Rate, Normal S1, Normal S2, No Murmurs Lungs: Clear to Auscultation, Normal Air Movement Abdomen: Normal Bowel Sounds, Soft, No Tenderness, No Masses Neurological: wont move rue/rle Extremities: No Clubbing, No Cyanosis, No Edema, Normal Pulses Current Medications: Current Medications Sig/Jose Guadalupe Start time Last Medication Dose Route Stop Time Status Admin Acetaminophen 650 MG Q6P PRN 11/15 1315 AC PO Aspirin 81 MG DAILY 11/15 0900 AC 11/16 PO 0824 Atorvastatin Calcium 40 MG 1700 11/15 1700 AC 11/15 PO 1703 Budesonide/ 2 PUF BID 11/15 09 AC 11/16 Formoterol Fumarate INH 0823 Divalproex Sodium 750 MG BID 11/15 0900 AC 11/16 PO 0824 Gabapentin 300 MG Q6 11/15 06 AC 11/16 PO 1138 Hydrocodone Bitart/ 1 TAB ONCE ONE 11/15 2299 DC 11/15 Acetaminophen PO 11/15 2300 2304 Insulin Aspart 0 TIDAC 11/16 0800 AC SC Insulin Aspart 1 UNITS ONCE ONE 11/16 0030 DC 11/16 SC 11/16 0031 0021 Levothyroxine Sodium 0.05 MG DAILY AC 11/15 0700 AC 11/16 PO 0644 Montelukast Sodium 10 MG DAILY 11/15 0900 AC 11/16 PO 0824 Prazosin HCl 1 MG QPM 11/15 2100 AC 11/15 PO 2300 Tiotropium [place] 1 PUF DAILY 11/15 0900 AC 11/16 INH 0824 Topiramate 50 MG AT BEDTIME 11/15 2100 AC 11/15 PO 2300 Tramadol HCl 50 MG Q6P PRN 11/15 1315 AC 11/15 PO 1321 Trimethobenzamide HCl 200 MG .STK-MED ONE 11/16 0002 DC IM 11/16 0003 Trimethobenzamide HCl 200 MG ONCE ONE 11/15 2345 DC 11/16 IM 11/15 234 0004 Last 24 Hrs of Lab/John Results Last 24 Hrs of Labs/Mics: Laboratory Tests 11/16/17818: CBC w Diff NO MAN DIFF REQ, RBC 3.83 L, MCV 97.0, MCH 33.0 H, MCHC 34.0, RDW 13.2, MPV 8.5, Gran % 52.9, Lymphocytes % 36.8, Monocytes % 5.4, Eosinophils % 4.4, Basophils % 0.5, Absolute Granulocytes 6.6 H, Absolute Lymphocytes 4.6 H, Absolute Monocytes 0.7 H, Absolute Eosinophils 0.5, Absolute Basophils 0.1 11/15/172339: Urine Opiates Screen < 100, Methadone Screen < 40, Barbiturate Screen < 60, Ur Phencyclidine Scrn < 6.00, Amphetamines Screen < 100, U Benzodiazepines Scrn < 85, Urine Cocaine Screen < 50, Urine Cannabis Screen < 5.00, Urine Color YEL, Urine Clarity HAZY H, Urine pH 6.0, Ur Specific [place] 1.025, Urine Protein NEG, Urine Ketones NEG, Urine Nitrite NEG, Urine Bilirubin NEG, Urine Urobilinogen 0.2, Ur Leukocyte Esterase SMALL H, Ur Microscopic SEDIMENT EXAMINED, Urine WBC 15-25 H, Ur Epithelial Cells MOD H, Urine Bacteria MANY H , Urine Mucus FEW, Urine Hemoglobin NEG, Urine Glucose NEG 11/15/17 1400: APTT Cancelled Microbiology 11/16 2339 URINE ROUT: Urine Culture - RECD Assessment/Plan Assessment: 47-year-old female with past medical history significant for seizure disorder, asthma, foot drop, urinary incontinence, PTSD, insomnia, CVA, hypothyroidism, spinal stenosis, who comes in for chief complaint of slurred speech and unilateral right-sided weakness. Notably, she has had multiple MRIs and CTs of head, carotid ultrasound and echocardiograms without evidence of intracranial pathology. Differential diagnosis in this patient includes CVA, seizure with Will's paralysis, or malingering. Weakness and slurring of speech, possible CVA: * Neuro checks * U tox negative * Continue home Depakote 750 mg by mouth daily * Depakote level low * Continue Topamax 50 mg at bedtime * Restart Cymbalta * Continue gabapentin 300 mg every 6 * Continue aspirin and statin * PT eval, may need STR Psych consultation Neurology consult, possible conversion disorder MRI negative Hold quetiapine Check MRI cervical spine Leukocytosis: Pt has wbc 21, repeat CBC pending. Afebrile and only complaint is sore throat. * Leukocytosis trending down, afebrile * Cultures negative * Hold off abx at this time Hypothyroisim: * Check TFT * Continue Synthroid 50 g DM Hold metformin Accuchecks TIDAC Novolog insulin sliding scale Heart healthy diet DVT ppx-lovenox Full code Problem List: 1. CVA (cerebral vascular accident) 2. Hypothyroidism Pain Ratin Pain Location: n/a Pain Goal: Pain 4 or less Pain Plan: prn Tomorrow's Labs & Rationales: none
[2017-11-16 09:06] LABS: ABSOLUTE BASOPHIL COUNT 0.1 /CUMM (0.0-0.2); ABSOLUTE EOSINOPHIL COUNT 0.5 /CUMM (0.0-0.7); ABSOLUTE GRANULOCYTE CT 6.6 /CUMM (1.4-6.5); ABSOLUTE LYMPH COUNT 4.6 /CUMM (1.2-3.4); ABSOLUTE MONOCYTE COUNT 0.7 /CUMM (0.10-0.60); BASOPHIL % 0.5 % (0.0-2.0); EOSINOPHIL % 4.4 % (0-5); GRANULOCYTE % 52.9 % (42.2-75.2); HEMATOCRIT 37.2 % (37-47); MEAN PLATELET VOLUME 8.5 FL (7.4-10.4); PLATELET COUNT 296 /CUMM (130-400); RBC DISTRIBUTION WIDTH 13.2 % (11.5-14.5); RED BLOOD CELL CT 3.83 /CUMM (4.20-5.40); WHITE BLOOD CELL COUNT 12.4 /CUMM (4.8-10.8)
[2017-11-16 14:25] VITALS: BP 110/60
[2017-11-16 22:12] VITALS: BP 100/60
[2017-11-17 06:50] VITALS: BP 108/76
--- NOTE | 2017-11-17 07:08 | PN- Housestaff ---
[facility] 11/17/17 0708: Subjective Follow-up For: possible CVA right sided weakness ?malingering Tele-Events Since Last Visit: NSR with HR 73-86. No overnight events. Subjective: Patient seen and examined. States she is still unable to move her right arm or leg. She has severe back pain and tramadol no longer provides much relief. She does find relief with vicodin. Review of Systems Constitutional: Reports: no symptoms. Objective Last 24 Hrs of Vital Signs/I&O Vital Signs Date Time Temp Pulse Resp B/P B/P Pulse O2 O2 Flow FiO2 Mean Ox Delivery Rate 11/17 0650 97.5 81 16 108/76 94 Room Air 11/16 2212 99.1 84 16 100/60 95 Room Air 11/16 2042 84 138/74 11/16 1425 98.1 87 20 110/60 98 Room Air Intake & Output 11/17 1600 11/17 0800 11/17 0000 Intake Total 1044 Output Total Balance 1044 Intake, Oral 1044 Patient 240 lb Weight Weight Bed scale Measurement Method Physical Exam General Appearance: Alert, Oriented X3, Cooperative, Mild Distress Skin: No Rashes, No Breakdown Skin Temp/Moisture Exam: Warm/Dry Sepsis Skin Exam (color): Normal for Ethnicity HEENT: Atraumatic Cardiovascular: Normal S1, Normal S2, No Murmurs Lungs: Clear to Auscultation, Normal Air Movement Abdomen: Soft, No Tenderness Neurological: Normal Speech, Cranial Nerves 3-12 NL, decreased strength 1/5 in RUE and RLE. , decreased sensation on right side. Extremities: No Edema Last 24 Hrs of Lab/John Results Last 24 Hrs of Labs/Mics: Laboratory Tests 11/17/17 0620: CBC w Diff Pending, WBC Pending, RBC Pending, Hgb Pending, Hct Pending, MCV Pending, MCH Pending, MCHC Pending, RDW Pending, Plt Count Pending, MPV Pending, Gran % Pending, Lymphocytes % Pending, Monocytes % Pending, Eosinophils % Pending, Basophils % Pending, Absolute Granulocytes Pending, Absolute Lymphocytes Pending, Absolute Monocytes Pending, Absolute Eosinophils Pending, Absolute Basophils Pending Assessment/Plan Assessment: 47-year-old female with past medical history significant for seizure disorder, asthma, foot drop, urinary incontinence, PTSD, insomnia, 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 Notably, she has had multiple MRIs and CTs of head, carotid ultrasound and echocardiograms without evidence of intracranial pathology. Assessment and Plan: Weakness and slurring of speech: * Currently slurred speech appears to have resolved. She still has right sided weakeness. * Continue neuro checks * U tox was negative * Continue aspirin and statin * Continue PT/OT * Her CTA Head/Neck did not reveal any clot. MRI was negative. * MRI cervical/lumbar spine today - pending. * Psych consult for possible malingering. Conversion disorder appears doubtful. Leukocytosis: * Leukocytosis persistent but improving. Patient has been afebrile * Blood Cultures negative * Hold off abx at this time History of Seizures: * Continue home Depakote 750 mg by mouth daily. Levels were low on admission. * Continue Topamax 50 mg at bedtime Hypothyroisim: * T3/T4 wnl * Continue Synthroid 50 g DM Hold metformin Accuchecks TIDAC Novolog insulin sliding scale History of Chronic Pain/Depressoin * Cotinue Cymbalta * Continue gabapentin 300 mg every 6 Diabetic diet DVT ppx-lovenox Full code Problem List: 1. Right arm weakness Pain Ratin Pain Location: none Pain Goal: Remain pain free Pain Plan: none Tomorrow's Labs & Rationales: CBC, BEP Fabio Veelz 11/17/17 1349: Attending MD Review Statement Attending Statement Attending MD Statement: examined this patient, discuss w/resident/PA/SENIOR C DEVELOPER, agreed w/resident/PA/SENIOR C DEVELOPER, discussed with family, reviewed EMR data (avail), discussed with nursing, discussed with case mgmt, reviewed images, amended to note Attending Assessment/Plan: Patient with possible conversion disorder initally thought to be stroke admited to telemetry. Neurology consulted and recommend [facility] evaluation. Patient needs SW consult. Discontinue telemetry and transfer to [facility].
[2017-11-17 07:58] LABS: ABSOLUTE BASOPHIL COUNT 0.1 /CUMM (0.0-0.2); ABSOLUTE EOSINOPHIL COUNT 0.5 /CUMM (0.0-0.7); ABSOLUTE GRANULOCYTE CT 8.5 /CUMM (1.4-6.5); ABSOLUTE LYMPH COUNT 4.6 /CUMM (1.2-3.4); ABSOLUTE MONOCYTE COUNT 0.6 /CUMM (0.10-0.60); BASOPHIL % 0.4 % (0.0-2.0); EOSINOPHIL % 3.7 % (0-5); GRANULOCYTE % 59.8 % (42.2-75.2); HEMATOCRIT 38.1 % (37-47); MEAN CORPUSCULAR HGB 32.8 PG (27.0-31.0); MEAN CORPUSCULAR HGB CONC 33.8 G/DL (33.0-37.0); MEAN PLATELET VOLUME 8.5 FL (7.4-10.4); PLATELET COUNT 286 /CUMM (130-400); RBC DISTRIBUTION WIDTH 13.5 % (11.5-14.5); RED BLOOD CELL CT 3.93 /CUMM (4.20-5.40)
[2017-11-17 08:53] LABS: WHITE BLOOD CELL COUNT 14.3 /CUMM (4.8-10.8)
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
--- NOTE | 2017-11-17 12:38 | MRI REPORT ---
EXAMINATION: MR CERVICAL SPINE WITHOUT CONTRAST CLINICAL INFORMATION: Right upper extremity weakness. COMPARISON: Prior MRI from 07/22/2016. TECHNIQUE: MRI of the cervical spine without contrast was obtained using routine sequences. FINDINGS: The study is somewhat limited due to motion artifacts. At the C6-C7 level, a broad-based posterior disc bulge/protrusion mildly impresses upon the ventral thecal sac and has slightly decreased in size compared to the prior study. No central canal stenosis is seen. There is mild left foraminal narrowing. Aside from a minimal annular bulge at C5-C6, the remaining disc spaces appear normal. The central canal and neural foramina are widely patent at the remaining levels. No cord signal abnormality is seen. The craniovertebral junction and imaged portions of the brain parenchyma appear normal. The paraspinal soft tissues are unremarkable. The imaged lungs are clear. IMPRESSION: Limited study with motion artifacts. Slight decrease in size of a broad-based posterior disc bulge/protrusion at C6-C7. Mild left foraminal narrowing as well at this level. Stable minimal posterior annular bulge at C5-C6.
--- NOTE | 2017-11-17 12:38 | MRI REPORT ---
EXAMINATION: MR LUMBAR SPINE WITHOUT CONTRAST CLINICAL INFORMATION: Evaluate for nerve compression. Right-sided hemiplegia and severe back pain. COMPARISON: MRI from 07/22/2016. TECHNIQUE: MRI of the lumbar spine without contrast was obtained using routine sequences. FINDINGS: VERTEBRAL BODIES AND PARASPINAL STRUCTURES: The marrow signal is mildly heterogeneous with regions of fatty change. There are no compression fractures or subluxations. The discs are fairly well-hydrated. The paraspinal soft tissues are unremarkable. The imaged bony pelvis appears normal. CONUS MEDULLARIS AND CAUDA EQUINA: Normal, terminating at the level of L1. No lower cord signal abnormality is seen. The cauda equina nerve roots appear normal. SPINAL LEVELS: T12-L1: Small right paracentral disc protrusion with minimal impression upon the ventral thecal sac. L1-L2: No disc pathology. Patent central canal and foramina. L2-L3: No disc pathology. No central canal stenosis or foraminal narrowing. L3-L4: Mild facet arthropathy. Patent central canal and foramina. L4-L5: Very mild annular bulge and facet arthrosis is stable. L5-S1: Broad-based left posterolateral disc protrusion continues to result in mild left foraminal encroachment without nerve root impingement. No central canal stenosis. IMPRESSION: Stable imaging findings with a small disc protrusion at T12-L1 and a left posterolateral disc protrusion at L5-S1. No nerve root impingement, central canal stenosis, or significant foraminal narrowing. No compression fractures.
[2017-11-17 14:37] VITALS: BP 114/80
[2017-11-17 22:17] VITALS: BP 110/76
[2017-11-18 06:29] VITALS: BP 112/76
--- NOTE | 2017-11-18 07:04 | PN- Housestaff ---
Wil KHALIL,[facility] 11/18/17 0703: Subjective Follow-up For: possible CVA right sided weakness ?malingering Tele-Events Since Last Visit: off tele Subjective: Reports feeling the same. Still unable to move her right upper/lower extremities. Review of Systems Constitutional: Reports: no symptoms. Objective Last 24 Hrs of Vital Signs/I&O Vital Signs Date Time Temp Pulse Resp B/P B/P Pulse O2 O2 Flow FiO2 Mean Ox Delivery Rate 11/18 628 97.9 87 18 112/76 95 Room Air 11/18 0000 Room Air 11/17 2217 99.0 102 18 110/76 93 11/17 1437 98.5 72 16 114/80 96 Room Air 11/17 0800 Room Air Intake & Output 11/18 0800 11/18 0000 11/17 1600 Intake Total 120 622 600 Output Total Balance 120 622 600 Intake, Oral 120 622 600 Number 1 1 Bowel Movements Patient 235 lb Weight Physical Exam General Appearance: Alert, Oriented X3, Cooperative, Mild Distress Skin: No Rashes, No Breakdown Skin Temp/Moisture Exam: Warm/Dry Sepsis Skin Exam (color): Normal for Ethnicity HEENT: Atraumatic Cardiovascular: Normal S1, Normal S2, No Murmurs Lungs: Clear to Auscultation, Normal Air Movement Abdomen: Soft, No Tenderness Neurological: Normal Speech, Cranial Nerves 3-12 NL, decreased sensation on right side, strength 1/5 in right upper/lower extremities, 5/5 on left side. Extremities: No Edema Last 24 Hrs of Lab/John Results Last 24 Hrs of Labs/Mics: Laboratory Tests 11/18/17 0642: Anion Gap 11, Estimated GFR > 60, BUN/Creatinine Ratio 11.3, CBC w Diff NO MAN DIFF REQ, RBC 3.92 L, MCV 97.5, MCH 32.7 H, MCHC 33.5, RDW 13.0, MPV 8.5, Gran % 58.5, Lymphocytes % 33.6, Monocytes % 4.1, Eosinophils % 3.4, Basophils % 0.4, Absolute Granulocytes 7.8 H, Absolute Lymphocytes 4.5 H, Absolute Monocytes 0.5, Absolute Eosinophils 0.4, Absolute Basophils 0.1 Assessment/Plan Assessment: 47-year-old female with past medical history significant for seizure disorder, asthma, foot drop, urinary incontinence, PTSD, insomnia, 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 Notably, she has had multiple MRIs and CTs of head, carotid ultrasound and echocardiograms without evidence of intracranial pathology. Assessment and Plan: Weakness and slurring of speech: * Slurred speech appears to have resolved. She still has right sided weakeness. Nurses report witnessing the patient move her right arm but not lifting it. There is strong suspicion for malingering. * U tox was negative * Continue aspirin and statin * PT/OT today * Her CTA Head/Neck did not reveal any clot. MRI was negative. * MRI cervical/lumbar spine today - did not reveal any acute abnormalities. * Psych input appreciated. Leukocytosis: * Leukocytosis persistent but improving. Patient has been afebrile * Blood Cultures negative History of Seizures: * Continue home Depakote 750 mg by mouth daily. Levels were low on admission. * Continue Topamax 50 mg at bedtime Hypothyroisim: * T3/T4 wnl * Continue Synthroid 50 g DM Hold metformin Accuchecks TIDAC Novolog insulin sliding scale History of Chronic Pain/Depressoin * Cotinue Cymbalta * Continue gabapentin 300 mg every 6 Diabetic diet DVT ppx-lovenox Full code Problem List: 1. Right arm weakness Pain Ratin Pain Location: none Pain Goal: Remain pain free Pain Plan: none Tomorrow's Labs & Rationales: CBC Fabio Velez 11/18/17 1058: Attending MD Review Statement Attending Statement Attending MD Statement: examined this patient, discuss w/resident/PA/UMBRELLA CUTTER, agreed w/resident/PA/UMBRELLA CUTTER, discussed with family, reviewed EMR data (avail), discussed with nursing, discussed with case mgmt, reviewed images, amended to note Attending Assessment/Plan: Patient with possible conversion disorder or possible malingering initally thought to be stroke admited to telemetry. Neurology consulted and recommend [facility] evaluation. Barbra has seen patient. Patient lives at correction. PT consult today and see how she work with PT. Gen/med transfer today.
[2017-11-18 07:52] LABS: ABSOLUTE BASOPHIL COUNT 0.1 /CUMM (0.0-0.2); ABSOLUTE EOSINOPHIL COUNT 0.4 /CUMM (0.0-0.7); ABSOLUTE GRANULOCYTE CT 7.8 /CUMM (1.4-6.5); ABSOLUTE LYMPH COUNT 4.5 /CUMM (1.2-3.4); ABSOLUTE MONOCYTE COUNT 0.5 /CUMM (0.10-0.60); BASOPHIL % 0.4 % (0.0-2.0); EOSINOPHIL % 3.4 % (0-5); GRANULOCYTE % 58.5 % (42.2-75.2); HEMATOCRIT 38.2 % (37-47); MEAN CORPUSCULAR HGB 32.7 PG (27.0-31.0); MEAN CORPUSCULAR HGB CONC 33.5 G/DL (33.0-37.0); MEAN CORPUSCULAR VOLUME 97.5 FL (81.0-99.0); MEAN PLATELET VOLUME 8.5 FL (7.4-10.4); PLATELET COUNT 285 /CUMM (130-400); RED BLOOD CELL CT 3.92 /CUMM (4.20-5.40); WHITE BLOOD CELL COUNT 13.3 /CUMM (4.8-10.8)
[2017-11-18 14:39] VITALS: BP 126/74
[2017-11-18 22:56] VITALS: BP 120/70
[2017-11-19 07:04] VITALS: BP 116/70
--- NOTE | 2017-11-19 07:08 | PN- Housestaff ---
Wil KHALIL,[facility] 11/19/17 0707: Subjective Follow-up For: right sided weakness ?malingering Tele-Events Since Last Visit: off tele Subjective: Still feels the same with no improvement in her symptoms. Complains of back pain. Has no urinary symptoms. Review of Systems Constitutional: Reports: no symptoms. Objective Last 24 Hrs of Vital Signs/I&O Vital Signs Date Time Temp Pulse Resp B/P B/P Pulse O2 O2 Flow FiO2 Mean Ox Delivery Rate 11/19 0800 Room Air 11/19 0704 97.7 84 18 116/70 97 Room Air 11/18 2256 98.9 80 18 120/70 100 Room Air 11/18 2140 78 126/74 11/18 1614 Room Air Room Air 11/18 1439 98.4 78 20 126/74 95 Room Air Intake & Output 11/19 1600 11/19 0800 11/19 0000 Intake Total 180 Output Total Balance 180 Intake, Oral 180 Patient 237 lb Weight Weight Bed scale Measurement Method Physical Exam General Appearance: Alert, Oriented X3, Cooperative, Mild Distress Skin: No Rashes, No Breakdown Skin Temp/Moisture Exam: Warm/Dry Sepsis Skin Exam (color): Normal for Ethnicity HEENT: Atraumatic Cardiovascular: Normal S1, Normal S2, No Murmurs Lungs: Clear to Auscultation, Normal Air Movement Abdomen: Soft, No Tenderness Neurological: Normal Speech, decreased sensation on right side, strength 0/5 on right side Extremities: No Edema Last 24 Hrs of Lab/John Results Last 24 Hrs of Labs/Mics: Laboratory Tests 11/19/17 0615: CBC w Diff Pending, WBC Pending, RBC Pending, Hgb Pending, Hct Pending, MCV Pending, MCH Pending, MCHC Pending, RDW Pending, Plt Count Pending, MPV Pending Assessment/Plan Assessment: 47-year-old female with past medical history significant for seizure disorder, asthma, foot drop, urinary incontinence, PTSD, insomnia, 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 Notably, she has had multiple MRIs and CTs of head, carotid ultrasound and echocardiograms without evidence of intracranial pathology. Assessment and Plan: Right Sided Weakness: * No further slurred speech since admisson. She continues to experience right sided weakeness. Nurses report witnessing the patient move her right arm but not lifting it. There is strong suspicion for malingering. * U tox was negative * Continue aspirin and statin * PT suggests STR * Her CTA Head/Neck did not reveal any clot. MRI was negative. * MRI cervical/lumbar spine today - did not reveal any acute abnormalities. * Psych input appreciated. * Neuro to reevaluate today if this is conversion disorder. Leukocytosis: * Leukocytosis persistent but improving. Patient has been afebrile * Blood Cultures negative * Urine culture shows enterococcus and alpha strep but the patient is asymptomatic so will not treat. History of Seizures: * Continue home Depakote 750 mg by mouth daily. Levels were low on admission. * Continue Topamax 50 mg at bedtime Hypothyroisim: * T3/T4 wnl * Continue Synthroid 50 g DM Hold metformin Accuchecks TIDAC Novolog insulin sliding scale History of Chronic Pain/Depressoin * Cotinue Cymbalta * Continue gabapentin 300 mg every 6 Diabetic diet DVT ppx-lovenox Full code Problem List: 1. Right arm weakness Pain Ratin Pain Location: none Pain Goal: Remain pain free Pain Plan: none Tomorrow's Labs & Rationales: CBC Fabio Velez 11/19/17 1254: Attending MD Review Statement Attending Statement Attending MD Statement: examined this patient, discuss w/resident/PA/APPRAISER ART, agreed w/resident/PA/APPRAISER ART, discussed with family, reviewed EMR data (avail), discussed with nursing, discussed with case mgmt, reviewed images, amended to note Attending Assessment/Plan: Patient with possible conversion disorder or possible malingering initally thought to be stroke admited to telemetry. Neurology consulted and recommend the medical center evaluation. [facility] has seen patient. Patient lives at retirement. PT consulted and recommend STR at discharge. Neurology follow up and possible outpatient referral for conversion disorder. Continue with rest of [facility] meds. Transfer to gen/med if bed available.
[2017-11-19 08:51] LABS: ABSOLUTE BASOPHIL COUNT 0 /CUMM (0.0-0.2); ABSOLUTE EOSINOPHIL COUNT 0.3 /CUMM (0.0-0.7); ABSOLUTE LYMPH COUNT 4.1 /CUMM (1.2-3.4); ABSOLUTE MONOCYTE COUNT 0.4 /CUMM (0.10-0.60); BASOPHIL % 0.2 % (0.0-2.0); EOSINOPHIL % 2.3 % (0-5); HEMATOCRIT 36.9 % (37-47); MEAN CORPUSCULAR HGB 33.2 PG (27.0-31.0); MEAN CORPUSCULAR HGB CONC 34.1 G/DL (33.0-37.0); MEAN CORPUSCULAR VOLUME 97.3 FL (81.0-99.0); MEAN PLATELET VOLUME 8.9 FL (7.4-10.4); PLATELET COUNT 263 /CUMM (130-400); RBC DISTRIBUTION WIDTH 13.2 % (11.5-14.5); RED BLOOD CELL CT 3.79 /CUMM (4.20-5.40); WHITE BLOOD CELL COUNT 13.9 /CUMM (4.8-10.8)
--- NOTE | 2017-11-19 14:06 | Patient Discharge Instructions ---
Discharge Instructions General Discharge Information You were seen/treated for: Conversion Disorder Special Instructions: Please follow up with a primary care physician within one week of discharge. Please follow up with a neurologist within 1-2 weeks of discharge. Diet Continue normal diet: Yes Activity Full Activity/No Limits: Yes Activity Self Limited: Yes Acute Coronary Syndrome Inclusion Criteria At DC or during hospital stay patient has or had the following: ACS DIAGNOSIS No Discharge Core Measures Meds if any: Prescribed or Continued at Discharge Meds if any: NOT Prescribed or Continued at Discharge Congestive Heart Failure Inclusion Criteria At DC or during hospital stay patient has or had the following: CHF DIAGNOSIS No Discharge Core Measures Meds if any: Prescribed or Continued at Discharge Meds if any: NOT Prescribed or Continued at Discharge Cerebrovascular accident Inclusion Criteria At DC or during hospital stay patient has or had the following: CVA/TIA Diagnosis No Discharge Core Measures Meds if any: Prescribed or Continued at Discharge Meds if any: NOT Prescribed or Continued at Discharge Venous thromboembolism Inclusion Criteria VTE Diagnosis No VTE Type NONE VTE Confirmed by (Test) NONE Discharge Core Measures - Per Current guidelines, there needs to be overlap - treatment for the first 5 days of Warfarin therapy. - If discharged on Warfarin prior to 5 days of - overlap therapy, the patient will need to be - assessed for post discharge needs including - *Post discharge parental anticoagulation - *Warfarin and/or parental anticoagulation education - *Follow up date to check INR post discharge At least 5 days overlap therapy as Inpatient No Meds if any: Prescribed or Continued at Discharge Note: Overlap Therapy is Warfarin and Anticoagulant Meds if any: NOT Prescribed or Continued at Discharge
--- NOTE | 2017-11-19 14:14 | Discharge Summary ---
Visit Information Visit Dates Admission Date: 11/14/17 Discharge Date: 11/19/17 Hospital Course Course Attending Physician: Fabio Velez MD Primary Care Physician: Patient Has No Primary Care Dr Hospital Course: 47-year-old female with PMHx significant for seizure disorder, asthma, foot drop , urinary incontinence, PTSD, insomnia, 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 Right Sided Weakness: Patient was admitted to the telemetry for monitoring of arrhythmias. She had a CTA head/neck which did not reveal any evidence of aterial occlusion. MRI of the head was negative for stroke. An extensive work up conducted was essentially negative including MRI of cervical and lumbar spine as she had some complains of back pain. Her slurred speech improved the next day, however, her right upper and lower extremity weakness persisted. She was evaluated by Neurology and Psychiatry and it is believed her symptoms are likely precipitated due to stress with possible conversion disorder. She received physical therapy and was recommended STR. History of Seizures: Continued on home dose of Depakote 750 mg by mouth daily and Topamax 50 mg at bedtime History of Hypothyroisim: Continued on Synthroid 50 mcg History of diabetes: Metformin was held and she was started on Novolog insulin sliding scale with regular Accucheks. History of Chronic Pain/Depressoin Continued on Cymbalta and gabapentin 300 mg every 6 hours Allergies: Coded Allergies: cephalexin (From KEFLEX) (Severe, ANAPHYLAXIS 07/19/16) ciprofloxacin (Severe, ANAPHYLAXIS 07/19/16) egg (Severe, ANAPHYLAXIS 07/19/16) Penicillins (ANAPHYLAXIS 07/19/16) Significant Procedures: SERVICE DATE: 11/17/17- EXAM TYPE: MRI - MRI-LUMBAR SPINE FINDINGS: VERTEBRAL BODIES AND PARASPINAL STRUCTURES: The marrow signal is mildly heterogeneous with regions of fatty change. There are no compression fractures or subluxations. The discs are fairly well-hydrated. The paraspinal soft tissues are unremarkable. The imaged bony pelvis appears normal. CONUS MEDULLARIS AND CAUDA EQUINA: Normal, terminating at the level of L1. No lower cord signal abnormality is seen. The cauda equina nerve roots appear normal. SPINAL LEVELS: T12-L1: Small right paracentral disc protrusion with minimal impression upon the ventral thecal sac. L1-L2: No disc pathology. Patent central canal and foramina. L2-L3: No disc pathology. No central canal stenosis or foraminal narrowing. L3-L4: Mild facet arthropathy. Patent central canal and foramina. L4-L5: Very mild annular bulge and facet arthrosis is stable. L5-S1: Broad-based left posterolateral disc protrusion continues to result in mild left foraminal encroachment without nerve root impingement. No central canal stenosis. IMPRESSION: Stable imaging findings with a small disc protrusion at T12-L1 and a left posterolateral disc protrusion at L5-S1. No nerve root impingement, central canal stenosis, or significant foraminal narrowing. No compression fractures. SERVICE DATE: 11/17/17- EXAM TYPE: MRI - MRI-CERVICAL SPINE FINDINGS: The study is somewhat limited due to motion artifacts. At the C6-C7 level, a broad-based posterior disc bulge/protrusion mildly impresses upon the ventral thecal sac and has slightly decreased in size compared to the prior study. No central canal stenosis is seen. There is mild left foraminal narrowing. Aside from a minimal annular bulge at C5-C6, the remaining disc spaces appear normal. The central canal and neural foramina are widely patent at the remaining levels. No cord signal abnormality is seen. The craniovertebral junction and imaged portions of the brain parenchyma appear normal. The paraspinal soft tissues are unremarkable. The imaged lungs are clear. IMPRESSION: Limited study with motion artifacts. Slight decrease in size of a broad-based posterior disc bulge/protrusion at C6-C7. Mild left foraminal narrowing as well at this level. Stable minimal posterior annular bulge at C5-C6. SERVICE DATE: 11/15/17- EXAM TYPE: MRI - MRI-HEAD W/O QUINN FINDINGS: No diffusion abnormalities are identified to suggest an acute or subacute infarct. No mass effect or midline shift is seen. The ventricles are normal in size. Brain parenchymal signal is unremarkable. No extra-axial fluid collections are seen. The brainstem and cerebellum are normal. No pathologic magnetic susceptibility artifact is identified on the gradient refocused acquisition. The craniovertebral junction, marrow signal, and midline structures are normal. The major intracranial flow-voids at the level of the [place] are preserved. The dural venous sinus flow-voids are maintained. The mastoid air cells are well-aerated. There is extensive mucoperiosteal thickening in the left sphenoid, anterior right ethmoid and right frontal sinuses. Milder changes are seen in the right sphenoid and posterior ethmoid sinuses. IMPRESSION: 1. There are no acute bleeds or infarcts. No masses are demonstrated. 2. There are paranasal sinus changes as described above. SERVICE DATE: 11/14/17 EXAM TYPE: CAT - CT HEAD ANGIOGRAM; CT NECK ANGIOGRAM FINDINGS: CT Head: There is no evidence of acute intracranial hemorrhage or territorial infarction. No abnormal mass-effect or midline shift is seen. Moise to white matter differentiation is well preserved. No extra-axial fluid collections are identified. The ventricles are normal in size. There is no abnormal attenuation or enhancement in the brain parenchyma. The osseous structures and soft tissues are normal. There is mucoperiosteal thickening in the bilateral sphenoid and anterior ethmoid air cells. CTA Neck: There is a classic configuration of the arch of the aorta. The great vessels of the neck are widely patent. The subclavian arteries appear normal bilaterally. The common carotid arteries have normal caliber. The study redemonstrates medialization of the carotid bifurcations particularly on the left, but the vessels are patent and there is no stenosis. The cervical internal carotid arteries are patent bilaterally. There are atheromatous calcifications. The origins of both vertebral arteries are well seen and appear normal. Both vertebral arteries are widely patent and demonstrate good opacification throughout their cervical course. The vertebral arteries are codominant. Nonvascular: The visualized lung fam are well-aerated. The thyroid gland is normal. The submandibular and parotid glands appear normal. There are mildly prominent multilevel lymph nodes in the neck, similar compared to the prior study. CTA Head: In the anterior circulation, the distal internal carotid arteries within the neck appear normal. The intracranial internal carotid arteries and their bifurcations appear normal. The middle and anterior cerebral arteries bilaterally demonstrate normal caliber with no evidence of focal stenosis, aneurysm or vascular malformation. There is normal arborization of the middle cerebral artery branches. The anterior communicating artery is normal. In the posterior circulation, the vertebral arteries are codominant. The vertebral arteries intradurally have uniform caliber. The basilar artery appears normal. The posterior cerebral arteries have normal caliber. The venous sinuses opacify normally. IMPRESSION: 1. There are no acute intracranial findings. No bleeds or territorial infarcts are demonstrated. There is no abnormal enhancement and no masses are seen. 2. CTA of the head and neck is normal. No focal stenoses, vascular malformations or aneurysms are demonstrated. SERVICE DATE: 11/14/17 EXAM TYPE: CAT - CT HEAD WO IV CONTRAST FINDINGS: There is no evidence of acute intracranial hemorrhage or territorial infarction. No abnormal mass effect or midline shift is seen. Moise to white matter differentiation is well preserved. No extra-axial fluid collections are identified. The ventricles are normal in size. There is no abnormal attenuation within the brain parenchyma. The osseous structures and soft tissues are normal. The visualized mastoid air cells are well-aerated. There is now some mucoperiosteal thickening in the left greater than right sphenoid sinuses and in the anterior ethmoid air cells. IMPRESSION: 1. There are no acute bleeds or territorial infarcts. No masses are demonstrated. Disposition Summary Disposition Principal Diagnosis: Conversion Disorder Additional Diagnosis: Bipolar Disorder Seizures Diabetes Mellitus PTSD Asthma Hypothyroidism Discharge Disposition: Acute Rehab Facility Discharge Instructions General Discharge Information Code Status: Full Code Patient's Diet: Diabetic Patient's Activity: As tolerated Follow-Up Instructions/Appts: Please follow up with a primary care physician within one week of discharge. Please follow up with a neurologist within 1-2 weeks of discharge. Medications at Discharge Discharge Medications: Continue taking these medications: Prazosin HCl (Prazosin HCl) 1 MG CAPSULE 1 Capsule ORAL Every night Qty = 30 Comments: Last Taken: 11/18/17 Time: 9PM Divalproex Sodium (Divalproex Sodium) 250 MG TABLET. 750 Milligram ORAL TWICE DAILY Qty = 30 Comments: Last Taken: 11/19/17 Time: 9AM Meclizine HCl (Meclizine HCl) 12.5 MG TABLET 1 Tablet ORAL as needed for VERTIGO Qty = 20 Comments: NOT GIVEN IN HOSPITAL Levothyroxine Sodium (Levothyroxine Sodium) 50 MCG TABLET 1 Tablet ORAL DAILY BEFORE BREAKFAST Qty = 30 Comments: Last Taken: 11/19/17 Time: 6AM Aspirin (Lo-Dose Aspirin EC) 81 MG TABLET.DR 1 Tablet ORAL DAILY Qty = 30 Comments: Last Taken: 11/19/17 Time: 9AM Albuterol Sulfate (Proair Hfa) 90 MCG HFA.AER.AD 2 Puff Inhale through mouth as needed for ASTHMA Qty = 9 Comments: NOT GIVEN IN HOSPITAL Topiramate (Topamax) 50 MG TABLET 1 Tablet ORAL TAKE AT BEDTIME Comments: Last Taken: 11/18/17 Time: 9PM Quetiapine Fumarate (Quetiapine Fumarate) 50 MG TABLET 1 Tablet ORAL Every night Comments: NOT GIVEN IN HOSPITAL Cyclosporine (Restasis) 0.05 % DROPERETTE 1 Drop In the eye TWICE DAILY Qty = 60 Comments: NOT GIVEN IN HOSPITAL Tiotropium [place] (Spiriva) 18 MCG CAP.W.DEV 1 Capsule Inhale through mouth DAILY Qty = 30 Comments: Last Taken: 11/19/17 Time: 9AM Fluticasone/Salmeterol (Advair 250-50 Diskus) 250 MCG-50 MCG/DOSE BLST.W.DEV 1 Puff Inhale through mouth TWICE DAILY Qty = 60 Comments: NOT GIVEN IN HOSPITAL Montelukast Sodium (Montelukast Sodium) 10 MG TABLET 1 Tablet ORAL DAILY Qty = 30 Comments: Last Taken: 11/19/17 Time: 9AM Atorvastatin Calcium (Atorvastatin Calcium) 40 MG TABLET 1 Tablet ORAL DAILY Comments: Last Taken: 11/19/17 Time: 5PM Duloxetine HCl (Duloxetine HCl) 30 MG CAPSULE.DR 1 Capsule ORAL DAILY Comments: Last Taken: 11/19/17 Time: 9AM Gabapentin (Gabapentin) 300 MG CAPSULE 1 Capsule ORAL EVERY SIX HOURS Comments: Last Taken: 11/19/17 Time: 1PM Metformin HCl (Glucophage) 1,000 MG TABLET 1 Tablet ORAL TWICE DAILY Comments: NOT GIVEN IN HOSPITAL. PT ON NOVOLOG SLIDING SCALE Copies To: Hardeep KHALIL,Alber Bardales Attending MD Review Statement Documenting Attending: Fabio Velez MD
[2017-11-19 14:32] VITALS: BP 118/74
[2017-11-19 14:57] VITALS: BP 118/74
--- NOTE | 2017-11-19 16:24 | PN- Neurology ---
Subjective Subjective: Received request to see patient in follow-up. Second opinion on whether a cVA or conversion reaction. When OOB with PT bearing starting to try to bear weight the right leg began shaking rhythmically. The arm and level of consciousness were not affected and no recurrence in bed. Here for a CVA with severe R hemiplegia Review of Systems: Denies headache, trouble eating or speaking. Transfer to rehab planned for later today. Objective Vital Signs and I&Os Vital Signs Date Time Temp Pulse Resp B/P B/P Pulse O2 O2 Flow FiO2 Mean Ox Delivery Rate 11/19 1457 98.0 82 18 118/74 11/19 1432 98.0 82 18 118/74 97 Room Air 11/19 1145 Room Air Room Air 11/19 0800 Room Air 11/19 0704 97.7 84 18 116/70 97 Room Air 11/18 2256 98.9 80 18 120/70 100 Room Air 11/18 2140 78 126/74 Intake & Output 11/19 1600 11/19 0800 11/19 0000 11/18 1600 11/18 0800 11/18 0000 Intake Total 420 180 420 120 622 Output Total Balance 420 180 420 120 622 Intake, Oral 420 180 420 120 622 Number 1 1 Bowel Movements Patient 237 lb 237 lb 235 lb Weight Weight Bed scale Measurement Method Physical Exam: Fully alert, oriented, no language impairment or dysarthria. VFF, EOMI, VII OK. 0/5 LUE and LLE, tone normal in leg sensation "less" to touch on right DTR's brisk and symmetric with unsustained clonus right ankle, plantar reflexes downgoing Current Medications: Current Medications Sig/Jose Guadalupe Start time Last Medication Dose Route Stop Time Status Admin Acetaminophen 650 MG Q6P PRN 11/15 1315 AC PO Aspirin 81 MG DAILY 11/15 09 AC 11/19 PO 0802 Atorvastatin Calcium 40 MG 1700 11/15 1700 AC 11/18 PO 1737 Budesonide/ 2 PUF BID 11/15 09 AC 11/19 Formoterol Fumarate INH 0802 Divalproex Sodium 750 MG BID 11/15 09 AC 11/19 PO 0802 Duloxetine HCl 30 MG DAILY 11/16 1356 AC 11/19 PO 0803 Enoxaparin Sodium 40 MG DAILY 11/17 1110 AC 11/19 SC 0803 Gabapentin 300 MG Q6 11/15 0600 AC 11/19 PO 1308 Insulin Aspart 0 TIDAC 11/16 0800 AC 11/18 SC 1320 Levothyroxine Sodium 0.05 MG DAILY AC 11/15 0700 AC 11/19 PO 0655 Montelukast Sodium 10 MG DAILY 11/15 0900 AC 11/19 PO 0803 Polyethylene Glycol 17 GM DAILY 11/16 1427 AC 11/17 PO 0900 Prazosin HCl 1 MG QPM 11/15 2100 AC 11/18 PO 2140 Senna/Docusate Sodium 2 TAB DAILY 11/16 1427 AC 11/18 PO 0930 Tiotropium [place] 1 PUF DAILY 11/15 0900 AC 11/19 INH 0802 Topiramate 50 MG AT BEDTIME 11/15 2100 AC 11/18 PO 2140 Tramadol HCl 50 MG Q6P PRN 11/15 1315 AC 11/15 PO 1321 Trazodone HCl 50 MG AT BEDTIME NEED.. 11/17 1545 AC PO Assessment/Plan Assessment: With severity of weakness in face of normal brain MRI and reports that the extremities move when patient unaware of being observed a conversion reaction is the diagnosis. None of the findings on exam are fully objective Plan: OK for discharge to rehab facility
== END 2017-11-19 18:15 | DRG 756 ==
LOC: ERH 20:30 → 1NO 23:11 → ERHI 23:11 → ENRESERV 11-15 00:29 → 1NO 11-15 00:59 → ENPENDDIS 11-19 16:00 → 1NO 11-19 18:15
PROVIDERS: Internal Medicine; Preventive Medicine Public Health & General Preventive Medicine; Student in an Organized Health Care Education/Training Program
DX: F44.4 Conversion disorder with motor symptom or deficit (principal); E03.9 Hypothyroidism, unspecified; G40.909 Epilepsy, unspecified, not intractable, without status epilepticus; M21.372 Foot drop, left foot; M21.371 Foot drop, right foot; R32 Unspecified urinary incontinence; M48.00 Spinal stenosis, site unspecified; F43.10 Post-traumatic stress disorder, unspecified; Z76.5 Malingerer [conscious simulation]; I69.354 Hemiplegia and hemiparesis following cerebral infarction affecting left non-dominant side; J45.909 Unspecified asthma, uncomplicated; G47.00 Insomnia, unspecified; Z86.73 Personal history of transient ischemic attack (TIA), and cerebral infarction without residual deficits; F31.9 Bipolar disorder, unspecified; G89.29 Other chronic pain; D72.829 Elevated white blood cell count, unspecified; E11.9 Type 2 diabetes mellitus without complications; Z79.84 Long term (current) use of oral hypoglycemic drugs; Z79.82 Long term (current) use of aspirin
CPT/HCPCS: 1NSP; 70551; 72141; 72148; ERO; 36415; 36592; 80307; 81001; 82436; 87040; 87070; 87086; 87088; 87147; 97161-GP; 97530-GO; J1650; J1815; J2060; J2405; J3250; J3490